=== PATIENT | male | born 1940 | race Caucasian/White ===

== ENCOUNTER → 2016-09-30 | Outpatient (CLI) | payer MEDICARE, BC ==
--- NOTE | 2016-09-30 13:23 | CTL ---
EXAMINATION TYPE: CT Low Dose Lung DATE OF EXAM ORDERED: 09/30/2016 COMPARISON: None HISTORY: . Low Dose CT Lung Screening CT DLP: 54.[address] CTDI: 1.70 mGy IV CONTRAST USED: None. SCREENING VISIT: First visit COMPARISON: None. TECHNIQUE: Low dose computed tomography scan was performed through the chest at 1 millimeter thick se ctions and reconstructed images in the coronal plane at [address] DIAGNOSTIC QUALITY: Satisfactory FINDINGS: LUNG NODULES: Not presentLeft lung: no nodules identified.Right lung: no nodules identified. LUNGS: COPD: Severity: Moderate to severe Fibrosis: Severity:None Lymph nodes: None Other findings: Biapical scarring RIGHT PLEURAL SPACE: Effusion: None Calcification: None Thickening: None Pneumothorax: None LEFT PLEURAL SPACE: Effusion: None Calcification: None Thickening: None Pneumothorax: None HEART: Heart Size: Mildly enlarged Coronary calcification: Mild Pericardial effusion: None OTHER FINDINGS: Upper abdomen: No significant abnormality Bony thorax: Degenerative changes Supraclavicular region: No significant abnormalityOther: No significant abnormalityI IMPRESSION: Benign FOLLOW UP CT CHEST RECOMMENDATION: Follow-up screening in one year CT LUNG RAD: Negative LUNG RAD CATEGORY category 1
== END | disposition home or self-care (01) ==
LOC: RADCTMAIN 12:46
PROVIDERS: ATTEND Family Medicine
DX: Z12.2 Encounter for screening for malignant neoplasm of respiratory organs (principal); Z87.891 Personal history of nicotine dependence

== ENCOUNTER 2017-07-23 23:33 | Inpatient (IN) | payer MEDICARE, BC ==
[2017-07-23 23:58] LABS: Basophils % (A) 0 %; Eosinophils # (A) 0.1 k/uL (0-0.7); Eosinophils % (A) 1 %; HCT 45.2 % (39.0-53.0); HGB 14.5 gm/dL (13.0-17.5); Lymphocytes # (A) 0.9 k/uL (1.0-4.8); Lymphocytes % (A) 8 %; MCH 27.6 pg (25.0-35.0); MCV 86.4 fL (80.0-100.0); Mean Platelet Volume 8.2; Monocytes # (A) 0.4 k/uL (0-1.0); Monocytes % (A) 4 %; Neutrophils # (A) 9.8 k/uL (1.3-7.7); Neutrophils % (A) 87 %; Platelet Count 161 k/uL (150-450); RBC 5.23 m/uL (4.30-5.90); RDW 13.7 % (11.5-15.5); WBC 11.4 k/uL (3.8-10.6)
[2017-07-24] MEDS ORDERED: MORPHINE SULFATE 4MG/4ML SYRG IVP STA (00:05)
[2017-07-24] MEDS ORDERED: NITROGLYCERIN SL TABS 0.4 MG TAB SUBLINGUAL STA (00:06)
[2017-07-24 00:15] LABS: INR 1.1 (<1.2); Prothrombin Time 10.4 sec (9.0-12.0)
[2017-07-24 00:19] LABS: ALT 24 U/L (21-72); AST 37 U/L (17-59); Alkaline Phosphatase 96 U/L (38-126); Anion Gap 12 mmol/L; Blood Urea Nitrogen 49 mg/dL (9-20); Calcium 10.2 mg/dL (8.4-10.2); Carbon Dioxide 28 mmol/L (22-30); Chloride 103 mmol/L (98-107); Glucose 175 mg/dL (74-99); Magnesium 2.2 mg/dL (1.6-2.3); Partial Thromboplastin Time 19.8 sec (22.0-30.0); Potassium 3.9 mmol/L (3.5-5.1); Sodium 143 mmol/L (137-145); Total Bilirubin 0.2 mg/dL (0.2-1.3); Total Protein 6.6 g/dL (6.3-8.2)
--- NOTE | 2017-07-24 00:21 | XR ---
EXAMINATION TYPE: XR chest 1V portable DATE OF EXAM: 07/24/2017 COMPARISON: NONE HISTORY: Dysrhythmia TECHNIQUE: Single frontal view of the chest is obtained. FINDINGS: Heart is normal. Lungs are clear of consolidation. Thoracic aorta is atheromatous. There i s no pleural effusion. There are chest leads. Bony thorax is intact. IMPRESSION: Atheromatous aorta. No active cardiopulmonary disease.
[2017-07-24] MEDS ORDERED: HEPARIN SODIUM,PORCINE 5,000 UNIT/ML 1 ML VIAL IV ONE (00:58)
[2017-07-24] MEDS ORDERED: HEPARIN SODIUM,PORCINE 5,000 UNIT/ML 1 ML VIAL IV PRN (00:58)
[2017-07-24] MEDS ORDERED: HEPARIN SOD,PORK IN 0.45% NACL 25,000 UNIT in 0.45% NACL 1 500ML.BAG IV SCH (01:00)
[2017-07-24] MEDS ORDERED: NITROGLYCERIN SL TABS 0.4 MG TAB SUBLINGUAL PRN ×3 (01:05→16:45)
[2017-07-24] MEDS ORDERED: NITROGLYCERIN-D5W PMX 50 MG in DEXTROSE/WATER 1 250ML.BAG IV ONE (01:18)
[2017-07-24] MEDS ORDERED: MORPHINE SULFATE 4MG/4ML SYRG IV STA (01:20)
[2017-07-24] MEDS: SODIUM CHLORIDE 0.9% 1,000 ML IV SCH ×2 (01:34→17:58)
--- NOTE | 2017-07-24 01:55 | ED ---
Chest Pain HPI - General Chief Complaint: Chest Pain Stated Complaint: Chest Pain Time Seen by Provider: 07/23/17 23:40 Source: patient, EMS Mode of arrival: EMS Limitations: no limitations - History of Present Illness Initial Comments: This patient is a 77-year-old man presenting to be evaluated for substernal chest pain and left chest pain that came on acutely tonight after he was drinking cold drink. Patient also had associated diaphoresis. He does have history of having a stent placed in 2000 in the mid RCA, here at [facility], by Dr. Reddy. ESCOBAR Complaint: chest pain -: hour(s) Onset: during rest Pain Location: left chest Pain Radiation: RUE, LUE Severity: moderate Quality: heaviness Consistency: constant, now resolved Improves With: nothing Worsens With: nothing Anginal Symptoms: diaphoresis Treatments Prior to Arrival: aspirin, nitroglycerin, oxygen - Related Data Home Medications Medication Instructions Recorded Confirmed Aspirin 325 mg PO DAILY 01/27/16 07/24/17 Atorvastatin [Lipitor] 10 mg PO HS 01/27/16 07/24/17 Sertraline [Zoloft] 100 mg PO BID 01/27/16 07/24/17 Cholecalciferol [Vitamin D3] 5,000 unit PO DAILY 07/24/17 07/24/17 Dextroamphetamine/Amphetamine 15 mg PO DAILY PRN 07/24/17 07/24/17 [Adderall] Tamsulosin [Flomax] 0.4 mg PO HS 07/24/17 07/24/17 Allergies Allergy/AdvReac Type Severity Reaction Status Date / Time No Known Allergies Allergy Verified 07/24/17 10:59 Review of Systems ROS Statement: Those systems with pertinent positive or pertinent negative responses have been documented in the HPI. ROS Other: All systems not noted in ROS Statement are negative. Constitutional: Denies: fever, chills Respiratory: Denies: cough, dyspnea Cardiovascular: Reports: chest pain. Denies: palpitations, edema, syncope Gastrointestinal: Denies: abdominal pain, nausea, vomiting Genitourinary: Denies: dysuria, hematuria Musculoskeletal: Denies: back pain Skin: Denies: rash Neurological: Denies: headache, weakness, numbness EKG Findings - EKG Comments: EKG Findings:: Low voltage QRS complexes. - EKG Results: EKG: interpreted by ERMD, sinus rhythm, normal axis EKG shows: tachycardia (Rate approximately 104 bpm) - Blocks, [place], Hypertrophy, ST Abn: Repolarization changes or abnormalities: nonspecific abnormality, ST segment, and/or T wave Past Medical History Past Medical History: Myocardial Infarction ([place]) Additional Past Medical History / Comment(s): Palpable mass/ lump in neck Last Myocardial Infarction Date:: 2000 History of Any Multi-Drug Resistant Organisms: None Reported Past Surgical History: Heart Catheterization With Stent Past Anesthesia/Blood Transfusion Reactions: No Reported Reaction Date of Last Stent Placement:: 03/01/2001 Past Psychological History: Depression Smoking Status: Current some day smoker Past Alcohol Use History: None Reported General Exam Limitations: no limitations General appearance: alert, in no apparent distress Head exam: Present: atraumatic, normocephalic Eye exam: Present: normal appearance. Absent: scleral icterus, conjunctival injection ENT exam: Present: normal oropharynx Neck exam: Present: normal inspection, full ROM Respiratory exam: Present: normal lung sounds bilaterally. Absent: respiratory distress, wheezes, rales, rhonchi, stridor Cardiovascular Exam: Present: regular rate, normal rhythm, normal heart sounds GI/Abdominal exam: Present: soft. Absent: distended, tenderness, guarding, rebound, mass Extremities exam: Present: normal inspection, normal capillary refill. Absent: pedal edema, calf tenderness Back exam: Present: normal inspection. Absent: CVA tenderness (R), CVA tenderness (L) Neurological exam: Present: alert Skin exam: Present: warm, dry, intact, normal color. Absent: rash Course Vital Signs 07/23/17 07/24/17 07/24/17 23:35 00:16 00:21 Temperature 97 F L Pulse Rate 104 H 87 Respiratory 25 H 18 Rate Blood Pressure 120/71 121/74 97/59 O2 Sat by Pulse 96 96 Oximetry 07/24/17 07/24/17 07/24/17 01:41 01:45 01:52 Temperature Pulse Rate 87 88 88 Respiratory 18 18 18 Rate Blood Pressure 116/76 110/73 105/62 O2 Sat by Pulse 95 95 95 Oximetry 07/24/17 07/24/17 07/24/17 01:56 02:15 02:25 Temperature Pulse Rate 88 85 88 Respiratory 18 18 18 Rate Blood Pressure 107/69 95/57 96/53 O2 Sat by Pulse 95 95 98 Oximetry Chest Pain MDM - MDM This patient is 77-year-old man with history of previous [place], who presents with chest pain concerning for cardiac etiology. His previous cardiology history includes having a stent placed here in 2000, by Dr. Rama Rabago, the patient's card indicates placement in the mid RCA. We did receive a call from the lab with critical troponin, and patient is started on heparin. The patient's pain did recur and he was given additional morphine and placed on nitroglycerin drip, and the patient does feel much better following this. I did discuss the patient 's case with Dr. Ramos, who is on-call. They do expect to take the patient for catheterization in the morning, as she is now clinically stable. Review of the patient's monitor strip does reveal he had one episode of ventricular tachycardia with about 12-15 beats that did spontaneously resolve. Disposition Clinical Impression: Non-STEMI (non-ST elevated myocardial infarction) Disposition: ADMITTED IP TO THIS HOSP Condition: Serious Is patient prescribed a controlled substance at d/c from ED?: No
[2017-07-24] MEDS ORDERED: SODIUM CHLORIDE 0.9% 500 ML IV ONE (02:19)
[2017-07-24 02:48] LABS: Glucose,Whole Blood 136 mg/dL (75-99)
[2017-07-24 07:05] LABS: Troponin I 11.8 ng/mL (0.000-0.034)
[2017-07-24] MEDS: INSULIN ASPART 100 UNIT/ML 1 ML 10 ML VIAL SQ SCH ×4 (08:00→22:23)
[2017-07-24 08:01] LABS: Glucose,Whole Blood 133 mg/dL (75-99)
[2017-07-24] MEDS: SERTRALINE 100 MG TAB PO SCH (08:55)
[2017-07-24] MEDS: NON-FORMULARY DRUG (Dextroamphetamine/Amphetamine [Adderall] 10 MG) PO SCH (08:55)
[2017-07-24] MEDS ORDERED: ATORVASTATIN 10 MG TAB PO SCH (09:00)
[2017-07-24] MEDS ORDERED: ATENOLOL 25 MG TAB PO SCH (09:00)
[2017-07-24] MEDS ORDERED: ALPRAZolam 0.5 MG TAB PO PRN (10:17)
[2017-07-24] MEDS ORDERED: SODIUM CHLORIDE 0.9% 1,000 ML in EMPTY BAG 1 BAG IV ONE (10:17)
[2017-07-24] MEDS ORDERED: ASPIRIN 325 MG TAB PO STA (10:27)
[2017-07-24] MEDS ORDERED: ATORVASTATIN 80 MG TAB PO STA (10:27)
--- NOTE | 2017-07-24 10:57 | CONS ---
CONSULTATION Mr. Schwartz is a 77-year-old male with a known history of coronary artery disease, status post percutaneous revascularization of the right coronary artery performed in 2000. He has not seen Dr. Rabago since that time. He had a stent done in the right coronary artery. According to him, he has done well. He was drinking some cold beverage yesterday when he had severe substernal chest discomfort that persisted. He came into the emergency room and was subsequently admitted. According to him, he has done well since his intervention. He denies any exertional chest discomfort in the recent past. He has dyspnea on exertion. No dizziness. No palpitation. No syncope. No PND or orthopnea. No peripheral edema. The patient's discomfort was radiating to the left upper extremity. His coronary risk factors are remarkable for a history of chronic tobacco use, hypertension, hyperlipidemia. He denies any arrhythmia. He denies any syncope. MEDICATION: His medications include: 1. Aspirin once a day. 2. Lipitor 10 mg daily. 3. Atenolol 25 mg daily. 4. Flomax. REVIEW OF SYSTEMS: RESPIRATORY SYSTEM. He has a history of chronic obstructive lung disease and emphysema. GI SYSTEM: No recent GI bleeding. No peptic ulcer disease. SYSTEM: No dysuria or hematuria. NERVOUS SYSTEM: No history of stroke or seizure. PHYSICAL EXAMINATION: This is a 77-year-old male, alert, oriented, in no apparent distress. Blood pressure 114/60 with a heart rate in the 80s. HEAD: Normocephalic. EYES: Sclerae anicteric. NECK: Good carotid upstroke. No bruit. LUNGS: Diffuse scattered rhonchi bilaterally. HEART: Regular rate and rhythm. S1, S2. No S3, with systolic murmur at the base. No diastolic murmur. No rub. ABDOMEN: Soft, non-tender. Positive bowel sounds. No organomegaly. EXTREMITIES: No edema. Intact distal pulses. LAB DATA: Lab data revealed troponin 1.2 and then 11.8. BUN and creatinine of 49 and 0.8. Hemoglobin of 14.5. Chest x-ray revealed no acute infiltrate. EKG reveals sinus mechanism was mild ST-segment changes of the inferior leads, that resolved. IMPRESSION: 1. Episode of chest discomfort with [id number]-elevation myocardial infarction in a patient with known history of coronary artery disease. 2. Chronic tobacco use. 3. Hypertension. 4. Hyperlipidemia. RECOMMENDATION: I would recommend to obtain echocardiogram with Doppler. The dose of his Lipitor will be adjusted. I have recommend proceeding with cardiac catheterization. The rationale behind the procedure as well as risks and complications were discussed with the patient, who is in full understanding and agreement. Depending on his testing, further recommendations will be made. Thank you for this consult. Will follow with you. MMODL / IJN: [id number] /
[2017-07-24] MEDS: METOPROLOL TARTRATE 25 MG TAB PO SCH ×2 (12:03→20:07)
[2017-07-24] MEDS: NICOTINE 21MG/24HR PATCH TRANSDERM SCH (12:34)
[2017-07-24] MEDS: ALPRAZolam 0.25 MG TAB PO PRN ×2 (12:40→17:58)
--- NOTE | 2017-07-24 12:42 | HP ---
HISTORY AND PHYSICAL DATE OF ADMISSION: 07/24/2017 DATE OF SERVICE: 07/24/2017 PRESENTING COMPLAINT: Chest pain. HISTORY OF PRESENTING COMPLAINT: This is a pleasant 77-year-old patient of Dr. Baker. Chronic stable medical conditions include depression, BPH, COPD, nicotine dependence. Patient started off with left-sided anterior chest pain late last night, rather sharp, over the precordial area. It really did not radiate. The patient was not short of breath but did break out in a sweat. He was not dizzy. He tired, nauseated. Patient presented to the ER. Initial troponin was 1.2, then it climbed up to 11.8. Patient was diagnosed to have acute non-Q-wave myocardial infarction and was put in the ICU, started on IV heparin. Patient will be taken for a cardiac catheterization. Patient is an active smoker. Last stent was around 1999. REVIEW OF SYSTEMS: CONSTITUTIONAL: Tired. HEENT: None. RESPIRATORY: Occasional wheezing and coughing. CARDIOVASCULAR: As above. GASTROINTESTINAL: None. GENITOURINARY: Some BPH symptoms. DERMATOLOGICAL: None. HEMATOLOGICAL: None. LYMPHATICS: None. PSYCHIATRY: Depression, controlled. NEUROLOGICAL: None. PAST MEDICAL HISTORY: 1. Coronary artery disease with stent. 2. Depression. 3. BPH. 4. COPD. PAST SURGICAL HISTORY: Cardiac catheterization with stent in 2000. SOCIAL HISTORY: Lives by himself. Has smoked a pack a day for 60 years. Stopping drinking alcohol 2 years ago. FAMILY HISTORY: Reviewed; noncontributory to presentation. HOME MEDICATIONS: 1. Flomax 0.4 mg at bedtime. 2. Zoloft 100 mg b.i.d. 3. Adderall 15 mg p.o. daily p.r.n. 4. Vitamin D3 5000 units p.o. daily. 5. Lipitor 10 mg at bedtime. 6. Aspirin 325 p.o. daily. ALLERGIES: NONE. PHYSICAL EXAMINATION: VITAL SIGNS ON PRESENTATION: Temperature 97, pulse 104, respiration 25, blood pressure 120/71, pulse ox 96% on 2 L. GENERAL APPEARANCE: Average build. Lying in bed, tired-appearing. EYES: Pupils equal. Conjunctivae normal. HEENT: External appearance of nose and ears normal. Oral cavity normal. NECK: JVD not raised. Mass not palpable. RESPIRATORY: Effort increased. LUNGS: Decreased breath sounds. Prolonged expiration. Some wheezing. CARDIOVASCULAR: First and second sounds normal. No edema. ABDOMEN: Soft, nontender. Liver and spleen not palpable. LYMPHATIC: No lymph node palpable in neck or axillae. PSYCHIATRY: Alert and oriented x3. Mood and affect normal. NEUROLOGICAL: Pupils equal. Cranial nerves grossly intact. Power and sensation grossly intact. INVESTIGATIONS: White count 11.4, hemoglobin 14.5, potassium 3.9, BUN 49, creatinine 0.80, troponin 1.2 and 11.8. EKG normal sinus rhythm. Chest x-ray shows hyperinflation, prominent pulmonary artery. ASSESSMENT: 1. Acute [id number] myocardial infarction in a patient with known prior coronary artery disease with stent. 2. Coronary artery disease with prior history of stent in 2000. 3. Depression not otherwise specified. 4. Chronic obstructive pulmonary disease in a current smoker. 5. Benign prostatic hypertrophy. 6. Chronic nicotine dependence. Patient is an active cigarette smoker. 7. IV heparin monitoring. PLAN: The patient is on aspirin, IV heparin, Lipitor dose 80 mg. Home medications will be resumed. He was given a nicotine patch. Cardiology Dr. Mclaughlin was consulted. Patient is going to the cardiac catheterization lab this morning. Care was discussed with the patient. MMODL / IJN: [id number] /
[2017-07-24] MEDS: IPRATROPIUM-ALBUTEROL 3 ML NEB INHALATION SCH ×4 (13:12→21:08)
[2017-07-24] MEDS ORDERED: IV FLUID CONTINUATION 850 ML IV ONE (15:05)
[2017-07-24] MEDS ORDERED: [UNRECOGNIZED DRUG - REMARK] IV ONE (15:05)
[2017-07-24] MEDS ORDERED: LIDOCAINE 2% INJ 20 MG/ML (20 ML MDV) ONE (15:17)
[2017-07-24] MEDS ORDERED: HEPARIN SODIUM 1,000 UN/ML (10ML VL) ONE (15:17)
[2017-07-24] MEDS ORDERED: VERAPAMIL 2.5 MG/ML 2 ML AMP ONE (15:17)
[2017-07-24] MEDS ORDERED: fentaNYL (PF) 50 MCG/ML 2 ML AMP ONE (15:17)
[2017-07-24] MEDS ORDERED: fentaNYL (PF) 50 MCG/ML 2 ML AMP IVP ONE (15:41)
[2017-07-24] MEDS ORDERED: LIDOCAINE 2% INJ 20 MG/ML SQ ONE (15:43)
[2017-07-24] MEDS ORDERED: VERAPAMIL SYRINGE (5 MG/10 ML) INTRAARTER ONE (15:47)
[2017-07-24] MEDS ORDERED: BIVALIRUDIN BOLUS 250 MG/50 ML IV ONE (16:01)
[2017-07-24] MEDS ORDERED: TICAGRELOR 90 MG TAB ONE (16:01)
[2017-07-24] MEDS ORDERED: BIVALIRUDIN 250 MG in SODIUM CHLORIDE 0.9% 50 ML IV ONE (16:02)
[2017-07-24] MEDS ORDERED: TICAGRELOR 90 MG TAB PO ONE (16:06)
[2017-07-24] MEDS ORDERED: IOPAMIDOL-370 125ML BTL INJ ONE (16:18)
[2017-07-24] MEDS ORDERED: IOPAMIDOL-370 100ML BTL INJ ONE (16:28)
[2017-07-24] MEDS ORDERED: MAG HYDROX/AL HYDROX/SIMETH 30 ML CUP PO PRN (16:45)
[2017-07-24] MEDS ORDERED: ZOLPIDEM 5 MG TAB PO PRN (16:45)
[2017-07-24] MEDS ORDERED: RX INFO: IV CONTRAST WAS GIVEN 1 EACH MISC MISCELLANE PRN (16:45)
[2017-07-24] MEDS ORDERED: ATROPINE SULFATE 0.1 MG/ML 10ML SYRINGE IV PRN (16:45)
[2017-07-24] MEDS ORDERED: SODIUM CHLORIDE 0.9% 1,000 ML IV SCH (16:45)
--- NOTE | 2017-07-24 18:11 | ECHOF ---
Referral Reason:mi MEASUREMENTS -------- HEIGHT: 165.1 cm WEIGHT: 64.4 kg BP: 120/60 RVIDd: 2.6 cm (< 3.3) IVSd: 1.1 cm (0.6 - 1.1) LVIDd: 4.1 cm (3.9 - 5.3) LVPWd: 1.1 cm (0.6 - 1.1) IVSs: 1.3 cm LVIDs: 3.0 cm LVPWs: 1.2 cm LA Diam: 3.6 cm (2.7 - 3.8) LAESV Index (A-L): 30.15 ml/m Ao Diam: 3.3 cm (2.0 - 3.7) AV Cusp: 1.6 cm (1.5 - 2.6) LA Diam: 4.3 cm (2.7 - 3.8) MV EXCURSION: 14.924 mm (> 18.000) MV EF SLOPE: 51 mm/s (70 - 150) EPSS: 0.7 cm MV E Wallace: 0.55 m/s MV DecT: 239 ms MV A Wallace: 0.85 m/s MV E/A Ratio: 0.65 AR PHT: 280 ms RAP: 5.00 mmHg RVSP: 43.07 mmHg FINDINGS -------- Sinus rhythm. This was a technically adequate study. There is mild concentric left ventricular hypertrophy. Overall left ventricular systolic function i s mild-moderately impaired with, an EF between 40 - 45 %. Basal inferior LV wall motion is hypokine tic. Mid lateral LV wall motion is hypokinetic. Mid inferior LV wall motion is hypokinetic. The right ventricle is normal in size. LA is midly dilated 29-33ml/m2. The right atrial size is normal. There is mild aortic valve sclerosis. There is mild aortic regurgitation. The mitral valve leaflets are mildly thickened. Mild mitral regurgitation is present. Mild tricuspid regurgitation present. There is mild pulmonary hypertension. The right ventricular systolic pressure, as measured by Doppler, is 43.07mmHg. There is no pulmonic regurgitation present. The aortic root size is normal. There is no pericardial effusion. CONCLUSIONS -------- 1. Sinus rhythm. 2. There is mild concentric left ventricular hypertrophy. 3. Overall left ventricular systolic function is mild-moderately impaired with, an EF between 40 - 45 %. 4. Basal inferior LV wall motion is hypokinetic. 5. Mid lateral LV wall motion is hypokinetic. 6. Mid inferior LV wall motion is hypokinetic. 7. LA is midly dilated 29-33ml/m2. 8. There is mild aortic valve sclerosis. 9. There is mild aortic regurgitation. 10. The mitral valve leaflets are mildly thickened. 11. Mild mitral regurgitation is present. 12. Mild tricuspid regurgitation present. 13. There is mild pulmonary hypertension. 14. There is no pulmonic regurgitation present. 15. The aortic root size is normal. 16. There is no pericardial effusion. VIDEO SYSTEMS ENGINEER: Joseline Roger RDCS
[2017-07-24 18:13] LABS: Glucose,Whole Blood 137 mg/dL (75-99)
--- NOTE | 2017-07-24 19:09 | CC ---
CARDIAC CATHETERIZATION REPORT DATE OF SERVICE: 07/24/2017. PROCEDURE: Cardiac catheterization. INDICATIONS: Mr. Schwartz is a 77-year-old male, known history of coronary artery disease, status post stenting of the right coronary artery in 2000, history of hypertension, chronic tobacco use, who presented with symptoms of chest discomfort and evidence of non-ST segment elevation myocardial infarction. In view of that, recommendation made regarding cardiac catheterization. The procedure, as well as the risks and complication were discussed with the patient who is in full understanding and agreement. DESCRIPTION OF PROCEDURE: Patient was brought to laboratory animal facility supervisor in a fasting semi-sedated state after receiving fentanyl and Benadryl and achieving moderate conscious sedated state. Using Xylocaine anesthesia and Seldinger technique, a 6-Congolese sheath was introduced in the right radial artery. Selective right and left coronary angiography performed using 5-Congolese 3-1/2 bend right and left Delfina catheter. Multiple views of the coronary arteries including hemiaxial views were obtained. Following that, angioplasty and stenting was performed from that 5-Congolese tight pigtail catheter in his left ventricle and a 30 degree VICK view of the left ventricle was obtained. Following that, the catheter and sheath were removed. Hemostasis was obtained with deployment of a TR band. There were no immediate complications. Patient is returned to his room in stable condition. FINDINGS: LEFT MAIN: This is a large-sized vessel, aneurysmal, bifurcating in left circumflex and left anterior descending artery. Left main coronary artery has no evidence of significant obstructive disease. LEFT MAIN DESCENDING ARTERY: This is a large-sized vessel reaching toward the apex, giving rise to three obtuse marginal branches. The left anterior descending artery is calcified but has no evidence of high-grade stenosis. The first diagonal branch is totally occluded proximally with no antegrade flow. LEFT CIRCUMFLEX: This is a small nondominant vessel giving rise to one obtuse marginal branch that has no evidence of high-grade stenosis. RIGHT CORONARY ARTERY: This is a large dominant vessel, bifurcating distally to PDA, and posterolateral segment branches. The stented segment in the mid right coronary artery has a 20% to 30% in-stent restenosis. The rest of the vessel has no high-grade stenosis. LEFT VENTRICULOGRAM: Left ventriculogram was performed in 30 degree VICK view and revealed anteroapical lateral hypokinesis. Ejection fraction 45%. There was no significant mitral regurgitation. HEMODYNAMICS: There was no gradient across the aortic valve. The left ventricle end-diastolic pressure was 16 to 20 mmHg. CONCLUSION: 1. Acutely occluded first diagonal branch. 2. Mild in-stent restenosis of the right coronary artery. 3. Mild impaired left ventricular systolic function. RECOMMENDATIONS: In view of findings of anatomy, I have recommended to proceed with angioplasty and stenting of the diagonal branch. The procedure, risks and complications were discussed with the patient who are in full understanding and agreement. MMODL / IJN: [id number] /
--- NOTE | 2017-07-24 19:09 | PTCA ---
PERCUTANEOUSTRANS CORORONARY ANGIOGRAPHY Mr. Schwartz is a 77-year-old male with known history of heart disease, who presented with evidence of non ST-segment elevation myocardial infarction. He underwent cardiac catheterization and was found to have totally occluded first diagonal branch. In view of that, recommendation was made regarding angioplasty and stenting the procedures risks and complication were discussed with the patient who is in full understanding and agreement. PROCEDURE: A 6-Chinese FL 3.5 guiding catheter in the system. After cannulating the left main, a 0.014 balanced medium J wire was advanced across the lesion with a 2.25 x 8 mm Trek balloon was advanced. Two inflations at maximum of 10 atmosphere was done. Following that, the wire was exchanged through the balloon to whisper J-wire, positioned in the distal diagonal branch. Following that and after removing the balloon, a 2.25 x 12 mm Xience Alpine stent was deployed and post dilated at 14 atmospheres. After the last inflation, after appropriate wait the balloon and the guidewire were withdrawn back in the guiding catheter. Images were obtained and repeated. Those images reveal stable successful stenting. At that point, the guiding catheter, the balloon and guidewire were removed. Left ventriculogram was performed. Following that, catheter and sheath were removed. Hemostasis was obtained with deployment of a TR band. There was no immediate complication. The patient was returned to his room in stable condition. Of note, the patient received Angiomax per protocol as well as oral loading dose of Brilinta. He had no significant chest pain or EKG changes with the inflations. RESULTS: A successful stenting of the first diagonal branch with reduction of stenosis 100% to 0%. RECOMMENDATION: The patient will be continued on aspirin, Brilinta, beta blockers and statin. The importance of dual antiplatelet treatment were discussed with the patient and he was in full understanding and agreement. DURATION OF PROCEDURE: 48 minutes. MMODL / IJN: [id number] /
[2017-07-24] MEDS: TAMSULOSIN 0.4 MG CAP.ER.24H PO SCH (20:07)
[2017-07-24] MEDS: TICAGRELOR 90 MG TAB PO SCH (20:07)
[2017-07-24 22:04] LABS: Glucose,Whole Blood 97 mg/dL (75-99)
[2017-07-25 04:49] LABS: Anion Gap 9 mmol/L; Blood Urea Nitrogen 38 mg/dL (9-20); Carbon Dioxide 26 mmol/L (22-30); Chloride 110 mmol/L (98-107); Cholesterol 99 mg/dL (<200); Glucose 114 mg/dL (74-99); HDL Cholesterol 44 mg/dL (40-60); LDL Cholesterol,Calculated 39 mg/dL (0-99); Potassium 3.9 mmol/L (3.5-5.1); Sodium 145 mmol/L (137-145); Triglycerides 79 mg/dL (<150)
[2017-07-25 04:56] LABS: Basophils % (A) 0 %; Eosinophils # (A) 0.1 k/uL (0-0.7); Eosinophils % (A) 1 %; HCT 39.5 % (39.0-53.0); HGB 13.1 gm/dL (13.0-17.5); Lymphocytes # (A) 0.7 k/uL (1.0-4.8); Lymphocytes % (A) 8 %; MCH 29.4 pg (25.0-35.0); MCHC 33.2 g/dL (31.0-37.0); MCV 88.4 fL (80.0-100.0); Monocytes # (A) 0.6 k/uL (0-1.0); Monocytes % (A) 7 %; Neutrophils # (A) 7.3 k/uL (1.3-7.7); Neutrophils % (A) 83 %; Platelet Count 106 k/uL (150-450); RBC 4.46 m/uL (4.30-5.90); RDW 13.6 % (11.5-15.5); WBC 8.8 k/uL (3.8-10.6)
[2017-07-25 07:18] LABS: Glucose,Whole Blood 104 mg/dL (75-99)
[2017-07-25] MEDS: IPRATROPIUM-ALBUTEROL 3 ML NEB INHALATION SCH ×4 (07:31→19:27)
[2017-07-25] MEDS: INSULIN ASPART 100 UNIT/ML 1 ML 10 ML VIAL SQ SCH ×4 (07:34→21:56)
[2017-07-25] MEDS: NON-FORMULARY DRUG (Dextroamphetamine/Amphetamine [Adderall] 10 MG) PO SCH (08:10)
[2017-07-25] MEDS: ATORVASTATIN 80 MG TAB PO SCH (08:11)
[2017-07-25] MEDS: ASPIRIN 81 MG PO SCH (08:11)
[2017-07-25] MEDS: TICAGRELOR 90 MG TAB PO SCH ×2 (08:12→20:34)
[2017-07-25] MEDS: SERTRALINE 100 MG TAB PO SCH (08:12)
[2017-07-25] MEDS: METOPROLOL TARTRATE 25 MG TAB PO SCH ×2 (08:12→20:34)
[2017-07-25] MEDS ORDERED: ASPIRIN 325 MG TAB PO SCH (09:00)
--- NOTE | 2017-07-25 10:10 | PN ---
PROGRESS NOTE HISTORY: Mr. Schwartz is a 77-year-old male who presented with an acute non ST-segment elevation myocardial infarction, underwent cardiac catheterization yesterday, was found to have totally occluded diagonal branch and underwent successful stenting. He is doing well this morning. His breathing has been stable. He denies any dizziness or palpitation. He denies any nausea. He is quite anxious to go home. He continues to be at this time on aspirin once a day, Lipitor 80 mg daily, Brilinta 90 mg twice a day, metoprolol tartrate 25 mg daily. PHYSICAL EXAMINATION: Blood pressure 120/80 with a heart in the 80s. LUNGS: Clear. Heart regular rate and rhythm. S1, S2. No S3. No rub. ABDOMEN: Soft, nontender. EXTREMITIES: No edema. Right radial pulse is intact. LAB DATA: Lab data revealed BUN and creatinine 38 and 0.8, potassium 3.9, hemoglobin of 13.1. EKG revealed no acute changes. IMPRESSION: 1. Status post stenting of the diagonal branch with non ST-segment elevation myocardial infarction. 2. Hypertension. 3. Chronic tobacco use. RECOMMENDATION: We will increase his level of activity. If he remains stable, I would expect he will be probably discharged home tomorrow. MMODL / IJN: [id number] /
[2017-07-25] MEDS: ALPRAZolam 0.25 MG TAB PO PRN ×2 (11:26→20:30)
[2017-07-25] MEDS: NICOTINE 21MG/24HR PATCH TRANSDERM SCH (11:43)
[2017-07-25 12:22] LABS: Glucose,Whole Blood 69 mg/dL (75-99)
[2017-07-25 12:41] LABS: Glucose,Whole Blood 50 mg/dL (75-99)
[2017-07-25 12:41] LABS: Glucose,Whole Blood 87 mg/dL (75-99)
[2017-07-25 17:13] LABS: Glucose,Whole Blood 89 mg/dL (75-99)
[2017-07-25] MEDS: TAMSULOSIN 0.4 MG CAP.ER.24H PO SCH (20:34)
--- NOTE | 2017-07-25 20:58 | PN ---
PROGRESS NOTE DATE OF SERVICE: 07/25/17 PRESENTING COMPLAINT: Chest pain. INTERVAL HISTORY: This patient presented with acute non-Q-wave myocardial infarction with successful angioplasty stenting to the diagonal branch. The patient this morning was seen by me in the ICU. Daughter is at the bedside. Otherwise, being comfortable, slightly short of breath. Wants to go home. Did explain to him that it is important that he stays back until matters are settled down. REVIEW OF SYSTEMS: Done for constitutional, cardiovascular, GI, pulmonary, relevant findings as above. CURRENT MEDICATIONS: Reviewed that include aspirin, Lipitor, Brilinta. PHYSICAL EXAMINATION: Afebrile, pulse 66, respiratory 18, blood pressure 105/67, pulse ox 100% on 4 L. GENERAL APPEARANCE: Lying in bed, tired appearing. Eyes pupils are equal. Conjunctivae normal. HEENT: External appearance of nose and ears normal. Oral cavity normal. Neck JVD not raised. Mass not palpable. Respiratory effort increased. Lungs decreased breath sounds. Prolonged expiration. Mild wheezing. Cardiovascular 1st and 2nd sounds normal. No edema. Abdomen soft, nontender. Liver and spleen not palpable. Psychiatry: Alert and oriented x3. Mood and affect normal. INVESTIGATIONS: White count 8.8, hemoglobin 13.1, potassium 3.9. Accu-Cheks noted. 2D echocardiogram EF 40-45%. ASSESSMENT: 1. Acute non ST elevation myocardial infarction in a patient with known coronary artery disease with stent. 2. Acute coronary intervention with stent to the LAD. 3. Coronary artery disease, prior stent in 2000. 4. Ischemic cardiomyopathy ejection fraction 40-45%. 5. Depression, not otherwise specified. 6. Chronic obstructive pulmonary disease in a current smoker. 7. Benign prostatic hypertrophy. 8. Chronic nicotine dependence, patient is an active cigarette smoker. PLAN: Explained to the patient the importance of staying back in the hospital as with is a very high , especially in the 1st 72 hours and that could cause problems including . Will keep a close eye on patient's blood pressure. Encouraged to be out of bed. Follow with Cardiology. MMODL / IJN: [id number] /
[2017-07-25 21:18] LABS: Glucose,Whole Blood 131 mg/dL (75-99)
[2017-07-25 21:22] LABS: Anion Gap 12 mmol/L; Calcium 9.1 mg/dL (8.4-10.2); Carbon Dioxide 24 mmol/L (22-30); Chloride 110 mmol/L (98-107); Glucose 163 mg/dL (74-99); Sodium 146 mmol/L (137-145)
[2017-07-25 21:24] LABS: Blood Urea Nitrogen 42 mg/dL (9-20); Potassium 4.1 mmol/L (3.5-5.1)
[2017-07-25] MEDS ORDERED: METOPROLOL TARTRATE 25 MG TAB PO STA (23:42)
[2017-07-26] MEDS: SODIUM CHLORIDE 0.9% 1,000 ML IV SCH (04:21)
[2017-07-26 05:56] LABS: Basophils % (A) 0 %; Eosinophils # (A) 0.1 k/uL (0-0.7); Eosinophils % (A) 1 %; HCT 36.5 % (39.0-53.0); HGB 11.9 gm/dL (13.0-17.5); Lymphocytes # (A) 0.7 k/uL (1.0-4.8); Lymphocytes % (A) 10 %; MCH 28.6 pg (25.0-35.0); MCHC 32.6 g/dL (31.0-37.0); MCV 87.9 fL (80.0-100.0); Mean Platelet Volume 8.5; Monocytes # (A) 0.5 k/uL (0-1.0); Monocytes % (A) 7 %; Neutrophils # (A) 5.8 k/uL (1.3-7.7); Neutrophils % (A) 81 %; RBC 4.16 m/uL (4.30-5.90); RDW 13.7 % (11.5-15.5); WBC 7.1 k/uL (3.8-10.6)
[2017-07-26 05:58] LABS: Glucose,Whole Blood 111 mg/dL (75-99)
[2017-07-26 06:00] LABS: Anion Gap 9 mmol/L; Blood Urea Nitrogen 41 mg/dL (9-20); Calcium 8.6 mg/dL (8.4-10.2); Carbon Dioxide 24 mmol/L (22-30); Chloride 111 mmol/L (98-107); Glucose 103 mg/dL (74-99); Potassium 3.8 mmol/L (3.5-5.1); Sodium 144 mmol/L (137-145)
[2017-07-26] MEDS: INSULIN ASPART 100 UNIT/ML 1 ML 10 ML VIAL SQ SCH ×4 (06:03→20:55)
[2017-07-26 06:15] LABS: Platelet Count 93 k/uL (150-450)
[2017-07-26] MEDS: ASPIRIN 81 MG PO SCH (08:06)
[2017-07-26] MEDS: METOPROLOL TARTRATE 25 MG TAB PO SCH ×3 (08:06→21:23)
[2017-07-26] MEDS: ATORVASTATIN 80 MG TAB PO SCH (08:06)
[2017-07-26] MEDS: NICOTINE 21MG/24HR PATCH TRANSDERM SCH (08:06)
[2017-07-26] MEDS: TICAGRELOR 90 MG TAB PO SCH ×2 (08:07→19:43)
[2017-07-26] MEDS: SERTRALINE 100 MG TAB PO SCH (08:07)
[2017-07-26] MEDS: IPRATROPIUM-ALBUTEROL 3 ML NEB INHALATION SCH ×5 (08:34→20:36)
[2017-07-26] MEDS: NON-FORMULARY DRUG (Dextroamphetamine/Amphetamine [Adderall] 10 MG) PO SCH (10:07)
[2017-07-26] MEDS: AMIODARONE 200 MG TAB PO SCH ×2 (10:34→19:42)
[2017-07-26 11:12] VITALS: BMI 22.9
[2017-07-26 11:54] LABS: Glucose,Whole Blood 88 mg/dL (75-99)
--- NOTE | 2017-07-26 14:41 | P.PN ---
Subjective Progress Note Date: 07/26/17 Principal diagnosis: Non-STEMI This is a 77-year-old gentleman who presented to the hospital with a non-ST elevation myocardial infarction, he underwent cardiac catheterization and was found to have a totally occluded diagonal branch for which he underwent successful stenting. This morning around 3 AM it was noted that the patient went into atrial fibrillation with a rapid ventricular response, he has since converted to normal sinus rhythm and again went back into atrial fibrillation. Patient was given an additional dose of beta angie, and his regular dose increased. He was also on amiodarone 400 mg one tablet by mouth twice a day and encourage by Dr. Mclaughlin to stay the night to the patient through the night. Blood pressure 92/58. Objective - Vital Signs Vital signs: Vital Signs Temp 96.2 F L 07/26/17 11:26 Pulse 100 07/26/17 12:09 Resp 18 07/26/17 11:26 BP 92/58 07/26/17 11:26 Pulse Ox 97 07/26/17 11:26 Intake & Output 07/25/17 07/26/17 07/26/17 18:59 06:59 18:59 Intake Total 75 0 360 Output Total 825 250 Balance -750 0 110 Weight 64.5 kg 64.5 kg Intake: Intake, IV Titration 0 0 Amount Sodium Chloride 0.9% 1, 0 0 000 ml @ 20 mls/hr IV . Q24H [facility] Rx#:[id number] Oral 75 360 Output: Urine 825 250 Other: Voiding Method Urinal Urinal # Voids 2 1 1 - Exam PHYSICAL EXAMINATION: HEENT: Head is atraumatic, normocephalic. Pupils equal, round. Neck is supple. There is no elevated jugular venous pressure. HEART EXAMINATION: Heart S1, S2 normal. No murmur or gallop heard. CHEST EXAMINATION: Lungs with fine expiratory wheezing noted .No chest wall tenderness is noted on palpation or with deep breathing. ABDOMEN: Soft, nontender. Bowel sounds are heard. No organomegaly noted. EXTREMITIES: 2+ peripheral pulses with no evidence of peripheral edema and no calf tenderness noted. NEUROLOGIC patient is awake, alert and oriented -3. . - Labs CBC & Chem 7: 07/26/17 05:10 07/26/17 05:10 Labs: Abnormal Lab Results - Last 24 Hours (Table) 07/25/17 07/25/1707/26/18 Range/Units 20:49 21:16 05:10 RBC 4.16 L (4.30-5.90) m/uL Hgb 11.9 L (13.0-17.5) gm/dL Hct 36.5 L (39.0-53.0) % Plt Count 93 L (150-450) k/uL Lymphocytes # 0.7 L (1.0-4.8) k/uL Sodium 146 H (137-145) mmol/L Chloride 110 H (98-107) mmol/L BUN 42 H (9-20) mg/dL Glucose 163 H (74-99) mg/dL POC Glucose (mg/dL) 131 H (75-99) mg/dL 07/26/17 07/26/17 Range/Units 05:10 05:56 RBC (4.30-5.90) m/uL Hgb (13.0-17.5) gm/dL Hct (39.0-53.0) % Plt Count (150-450) k/uL Lymphocytes # (1.0-4.8) k/uL Sodium (137-145) mmol/L Chloride 111 H (98-107) mmol/L BUN 41 H (9-20) mg/dL Glucose 103 H (74-99) mg/dL POC Glucose (mg/dL) 111 H (75-99) mg/dL Assessment and Plan Plan: Assessment and plan #1 acute non-ST elevation myocardial infarction, status post stenting of the diagonal branch #2 hypertension #3 nicotine dependence #4 paroxysmal atrial fibrillation, currently in normal sinus rhythm Plan We will increase the dose of beta angie, start the patient on amiodarone 400 mg one tablet by mouth twice a day. Continue to monitor for the next 24 hours and plan for possible discharge home in the morning if stable. DNP note has been reviewed, I agree with a documented findings and plan of care. Patient was seen and examined.
[2017-07-26 16:53] LABS: Glucose,Whole Blood 96 mg/dL (75-99)
[2017-07-26] MEDS: BUDESONIDE 1 MG/2 ML NEBU INHALATION SCH ×2 (17:12→20:35)
[2017-07-26] MEDS: TAMSULOSIN 0.4 MG CAP.ER.24H PO SCH (19:42)
[2017-07-26 19:47] VITALS: RESP 18
[2017-07-26] MEDS ORDERED: MELATONIN 3 MG TABLET PO ONE (20:39)
[2017-07-26 20:43] LABS: Glucose,Whole Blood 132 mg/dL (75-99)
[2017-07-26] MEDS: ALPRAZolam 0.25 MG TAB PO PRN (21:26)
--- NOTE | 2017-07-26 21:56 | PN ---
PROGRESS NOTE DATE OF SERVICE: 07/26/2017 PRESENTING COMPLAINT: Chest pain. INTERVAL HISTORY: This is a patient with acute non-Q-wave ND and successful angioplasty and stenting. Feels a bit tired. Up and about. No chest pain. REVIEW OF SYSTEMS: Done for constitutional, cardiovascular, GI, pulmonary; relevant findings as above. CURRENT MEDICATIONS: Reviewed. PHYSICAL EXAMINATION: Temperature 96.2, pulse 79, respiration 18, blood pressure 92/58, pulse ox 97% on 3 L. GENERAL APPEARANCE: Sitting up. Comfortable. EYES: Pupils equal. Conjunctivae normal. HEENT: External appearance of nose and ears normal. Oral cavity normal. NECK: JVD not raised. Mass not palpable. RESPIRATORY: Effort increased. LUNGS: Decreased breath sounds. Prolonged expiration. CARDIOVASCULAR: First and second sounds normal. No edema. ABDOMEN: Soft, nontender. Liver and spleen not palpable. PSYCHIATRY: Alert and oriented x3. Mood and affect normal. INVESTIGATIONS: White count 7.1, hemoglobin 11.9, potassium 3.8. ASSESSMENT: 1. Acute ST-elevation myocardial infarction in a patient with known coronary artery disease with stent. 2. Acute coronary intervention with stent to the left anterior descending coronary artery. 3. Coronary artery disease with prior stent in 2010. 4. Ischemic cardiomyopathy; ejection fraction 40% to 45%. 5. Depression not otherwise specified. 6. Chronic obstructive pulmonary disease in a current smoker. 7. Benign prostatic hypertrophy. 8. Chronic nicotine dependence; patient an active cigarette smoker. PLAN: Continue current medication and treatment plan. Patient encouraged to ambulate. Follow with Cardiology. MMODL / IJN: [id number] /
[2017-07-27] MEDS: SODIUM CHLORIDE 0.9% 1,000 ML IV SCH (02:41)
[2017-07-27 06:46] LABS: Basophils % (A) 0 %; Eosinophils # (A) 0.2 k/uL (0-0.7); Eosinophils % (A) 4 %; HCT 35.6 % (39.0-53.0); HGB 11.3 gm/dL (13.0-17.5); Lymphocytes # (A) 0.8 k/uL (1.0-4.8); Lymphocytes % (A) 13 %; MCH 28.1 pg (25.0-35.0); MCHC 31.7 g/dL (31.0-37.0); MCV 88.5 fL (80.0-100.0); Mean Platelet Volume 8.7; Monocytes # (A) 0.4 k/uL (0-1.0); Monocytes % (A) 6 %; Neutrophils # (A) 4.7 k/uL (1.3-7.7); Neutrophils % (A) 75 %; Platelet Count 102 k/uL (150-450); RBC 4.03 m/uL (4.30-5.90); RDW 13.7 % (11.5-15.5); WBC 6.2 k/uL (3.8-10.6)
[2017-07-27] MEDS: INSULIN ASPART 100 UNIT/ML 1 ML 10 ML VIAL SQ SCH ×2 (06:54→12:00)
[2017-07-27 06:59] LABS: Glucose,Whole Blood 114 mg/dL (75-99)
[2017-07-27] MEDS: AMIODARONE 200 MG TAB PO SCH (08:16)
[2017-07-27] MEDS: METOPROLOL TARTRATE 25 MG TAB PO SCH (08:16)
[2017-07-27] MEDS: ATORVASTATIN 80 MG TAB PO SCH (08:16)
[2017-07-27] MEDS: NICOTINE 21MG/24HR PATCH TRANSDERM SCH (08:17)
[2017-07-27] MEDS: TICAGRELOR 90 MG TAB PO SCH (08:17)
[2017-07-27] MEDS: SERTRALINE 100 MG TAB PO SCH (08:17)
[2017-07-27] MEDS: ASPIRIN 81 MG PO SCH (08:17)
[2017-07-27] MEDS: NON-FORMULARY DRUG (Dextroamphetamine/Amphetamine [Adderall] 10 MG) PO SCH (08:22)
[2017-07-27] MEDS: BUDESONIDE 1 MG/2 ML NEBU INHALATION SCH (08:34)
[2017-07-27] MEDS: IPRATROPIUM-ALBUTEROL 3 ML NEB INHALATION SCH ×2 (08:34→11:36)
[2017-07-27 11:44] VITALS: BP 96/61; TEMP 96.9
[2017-07-27 11:49] VITALS: PULSE 88
[2017-07-27 11:58] LABS: Glucose,Whole Blood 118 mg/dL (75-99)
--- NOTE | 2017-07-27 14:50 | P.PN ---
Subjective Progress Note Date: 07/27/17 Principal diagnosis: Non-STEMI This is a 77-year-old gentleman who presented to the hospital with a non-ST elevation myocardial infarction, he underwent cardiac catheterization and was found to have a totally occluded diagonal branch for which he underwent successful stenting. This morning around 3 AM it was noted that the patient went into atrial fibrillation with a rapid ventricular response, he has since converted to normal sinus rhythm and again went back into atrial fibrillation. Patient was given an additional dose of beta angie, and his regular dose increased. He was also on amiodarone 400 mg one tablet by mouth twice a day and encourage by Dr. Mclaughlin to stay the night to the patient through the night. Blood pressure 92/58. 07/27/2017 Patient was seen and examined this morning, denies any further chest discomfort , remaining in normal sinus rhythm today. Breathing is overall stable. He is quite anxious about going home, home care has been set up for him on discharge. The pressure 96/60 with a heart rate in the 60s, 91% on room air. Objective - Vital Signs Vital signs: Vital Signs Temp 96.9 F L 07/27/17 11:43 Pulse 88 07/27/17 11:48 Resp 18 07/27/17 11:43 BP 96/61 07/27/17 11:43 Pulse Ox 91 L 07/27/17 11:43 Intake & Output 07/26/17 07/27/17 07/27/17 18:59 06:59 18:59 Intake Total 480 340 Output Total 250 Balance 230 340 Weight 64.5 kg 64.5 kg 64.5 kg Intake: Intake, IV Titration 0 Amount Sodium Chloride 0.9% 1, 0 000 ml @ 20 mls/hr IV . Q24H [facility] Rx#:[id number] Oral 480 340 Output: Urine 250 Other: # Voids 1 2 1 - Exam PHYSICAL EXAMINATION: HEENT: Head is atraumatic, normocephalic. Pupils equal, round. Neck is supple. There is no elevated jugular venous pressure. HEART EXAMINATION: Heart S1, S2 normal. No murmur or gallop heard. CHEST EXAMINATION: Lungs are clear to auscultation ABDOMEN: Soft, nontender. Bowel sounds are heard. No organomegaly noted. EXTREMITIES: 2+ peripheral pulses with no evidence of peripheral edema and no calf tenderness noted. NEUROLOGIC patient is awake, alert and oriented -3. . - Labs CBC & Chem 7: 07/27/17 05:59 07/26/17 05:10 Labs: Abnormal Lab Results - Last 24 Hours (Table) 07/26/17 07/27/17 07/27/17 Range/Units 20:41 05:59 06:53 RBC 4.03 L (4.30-5.90) m/uL Hgb 11.3 L (13.0-17.5) gm/dL Hct 35.6 L (39.0-53.0) % Plt Count 102 L (150-450) k/uL Lymphocytes # 0.8 L (1.0-4.8) k/uL POC Glucose (mg/dL) 132 H 114 H (75-99) mg/dL 07/27/17 Range/Units 11:57 RBC (4.30-5.90) m/uL Hgb (13.0-17.5) gm/dL Hct (39.0-53.0) % Plt Count (150-450) k/uL Lymphocytes # (1.0-4.8) k/uL POC Glucose (mg/dL) 118 H (75-99) mg/dL Assessment and Plan Plan: Assessment and plan #1 acute non-ST elevation myocardial infarction, status post stenting of the diagonal branch #2 hypertension #3 nicotine dependence #4 paroxysmal atrial fibrillation, currently in normal sinus rhythm Plan Patient may be able to be discharged home today from cardiology's perspective, we'll make a follow-up appointment with Dr. simons on with the office in one week post discharge. Patient will be discharged home on amiodarone 400 mg one tablet by mouth twice a day for one week, then 200 mg by mouth twice a day. Aspirin 81 mg daily, Lipitor 80 mg daily, metoprolol 25 mg one tablet by mouth 3 times a day, nicotine patch, Brilinta 90 mg by mouth twice a day, and sublingual nitroglycerin as needed for chest pain. Patient has again been instructed regarding the importance of complete nicotine cessation and the compliance of taking medications regularly. DNP note has been reviewed, I agree with a documented findings and plan of care. Patient was seen and examined.
--- NOTE | 2017-07-28 08:20 | DS ---
DISCHARGE SUMMARY DATE OF ADMISSION: 07/24/2017 DATE OF DISCHARGE: July 27, 2017. FINAL DIAGNOSES: 1. Acute non ST-elevation myocardial infarction. The patient has known coronary artery disease with stent. 2. Acute coronary intervention with stent to the LAD. 3. Coronary artery disease with prior history of stent in 2010. 4. Ischemic cardiomyopathy ejection fraction 40-45%. 5. Depression, not otherwise specified. 6. Chronic obstructive pulmonary disease in a current smoker. 7. Benign prostatic hypertrophy. 8. Chronic nicotine dependence, patient is an active cigarette smoker. CONSULTATION: Dr. Mclaughlin from Cardiology. HOSPITAL COURSE: This patient presented with an acute MT which is non ST elevation type. The patient was taken to the cardiac catheterization lab and intervention as above was carried out. The patient has significant COPD, but does not really want to follow up with any Pulmonary. I did get breathing treatments and inhalers and told him that if he changes mind he should follow up with a fur tailor, which he was not keen to see. He has seen one before. No further chest pain. Up and about. The patient 2D echocardiogram showed EF as above. Today care was discussed at length with the patient and son at the bedside and smoking cessation counseling was again done at length. DISCHARGE MEDICATIONS: 1. Zoloft 100 mg p.o. b.i.d. 2. Vitamin D3 5000 units p.o. daily. 3. Adderall 550 mg p.o. daily p.r.n. 4. Flomax 0.4 mg q.h.s. 5. Cordarone 400 mg p.o. b.i.d. 6. Aspirin 81 mg p.o. daily. 7. Lipitor 80 mg p.o. daily. 8. Symbicort 160/4.5, 2 puffs b.i.d. 9. DuoNeb q.i.d. 10.Lopressor 25 p.o. b.i.d. 11.Nicotine 21 gm patch. 12.Nitrostat 0.4 sublingual q.5h p.r.n. 13.Brilinta 90 mg b.i.d. 14.Prednisone taper. FOLLOW UP: Follow up with Dr. Mclaughlin on August 02, 2017. Follow up with Dr. Jamie Baker on July 30, 2017. New nebulizer prescribed. Discussion and discharge planning more than [address] Baker. MMODL / CHAITANYAN: [id number] /
== END 2017-07-27 16:32 | disposition home health service (06) | DRG 247 ==
LOC: EC 23:33 → 6ICU 07-24 01:06 → 6SEL 07-25 17:39
PROVIDERS: ADMIT Hospitalist; ATTEND Hospitalist
PROC: B211YZZ Fluoroscopy of Multiple Coronary Arteries using Other Contrast (ICD-10-PCS; 2017-07-24)
PROC: B215YZZ Fluoroscopy of Left Heart using Other Contrast (ICD-10-PCS; 2017-07-24)
PROC: B215YZZ Fluoroscopy of Left Heart using Other Contrast (ICD-10-PCS; principal; 2017-07-24 15:00)
PROC: 027034Z Dilation of Coronary Artery, One Artery with Drug-eluting Intraluminal Device, Percutaneous Approach (ICD-10-PCS; 2017-07-24 15:00)
DX: I21.4 Non-ST elevation (NSTEMI) myocardial infarction (principal); I47.2 Ventricular tachycardia; T82.855A Stenosis of coronary artery stent, initial encounter; J44.9 Chronic obstructive pulmonary disease, unspecified; I48.0 Paroxysmal atrial fibrillation; I25.10 Atherosclerotic heart disease of native coronary artery without angina pectoris; N40.0 Benign prostatic hyperplasia without lower urinary tract symptoms; E78.5 Hyperlipidemia, unspecified; I25.5 Ischemic cardiomyopathy; I10 Essential (primary) hypertension; I25.2 Old myocardial infarction; F17.210 Nicotine dependence, cigarettes, uncomplicated; Z71.6 Tobacco abuse counseling; F32.9 Major depressive disorder, single episode, unspecified; Z79.82 Long term (current) use of aspirin; Z79.899 Other long term (current) drug therapy; Y84.0 Cardiac catheterization as the cause of abnormal reaction of the patient, or of later complication, without mention of misadventure at the time of the procedure
CPT/HCPCS: 36415; 71045; 80048; 80053; 80061; 82550; 82553; 83735; 84484; 85025; 85610; 85730; 93005; 93306; 93458; 94640; 94760; 96365; 96368; 96375; 96376; 99285

== ENCOUNTER 2017-08-17 11:29 | Inpatient (IN) | payer MEDICARE, BC ==
--- NOTE | 2017-08-17 11:47 | ED ---
General Adult HPI - General Chief complaint: Shortness of Breath Stated complaint: SOB Time Seen by Provider: 08/17/17 11:32 Source: patient, EMS, RN notes reviewed, old records reviewed Mode of arrival: EMS Limitations: no limitations - History of Present Illness Initial comments: This is a 69-year-old male to the ER for evaluation. She was essay for evaluation regards to shortness of breath, patient has severe history of CVA, heart disease possible underlying COPD. Patient has no recent travel history no sick contacts but does have significant shortness of breath, positive cough positive congestion. Patient unable to catch his breath, does have significant pain when taking a deep breath as well - Related Data Home Medications Medication Instructions Recorded Confirmed Sertraline [Zoloft] 100 mg PO BID 01/27/16 08/17/17 Cholecalciferol [Vitamin D3] 5,000 unit PO DAILY 07/24/17 08/17/17 Dextroamphetamine/Amphetamine 15 mg PO DAILY PRN 07/24/17 08/17/17 [Adderall] Tamsulosin [Flomax] 0.4 mg PO HS 07/24/17 08/17/17 Previous Rx's Medication Instructions Recorded Amiodarone [Cordarone] 400 mg PO BID #60 tab 07/27/17 Aspirin 81 mg PO DAILY #30 chew 07/27/17 Atorvastatin [Lipitor] 80 mg PO DAILY #30 tab 07/27/17 Budesonide-Formot 160-4.5 Mcg 2 puff INHALATION BID #1 inhaler 07/27/17 [Symbicort 160-4.5 Mcg Inhaler] Ipratropium-Albuterol Nebulize 3 ml INHALATION RT-QID #120 07/27/17 [Duoneb 0.5 mg-3 mg/3 ml Soln] ampul.neb Metoprolol Tartrate [Lopressor] 25 mg PO TID #90 tab 07/27/17 Nicotine 21Mg/24Hr Patch [Habitrol] 1 patch TRANSDERM DAILY #30 patch 07/27/17 Nitroglycerin Sl Tabs [Nitrostat] 0.4 mg SUBLINGUAL Q5M PRN #25 tab 07/27/17 Ticagrelor [Brilinta] 90 mg PO BID #60 tab 07/27/17 predniSONE 10 mg PO DAILY #30 tab 07/27/17 Allergies Allergy/AdvReac Type Severity Reaction Status Date / Time No Known Allergies Allergy Verified 08/17/17 12:19 Review of Systems ROS Statement: Those systems with pertinent positive or pertinent negative responses have been documented in the HPI. ROS Other: All systems not noted in ROS Statement are negative. Past Medical History Past Medical History: Myocardial Infarction (ID) Additional Past Medical History / Comment(s): Palpable mass/ lump in neck Last Myocardial Infarction Date:: 2000 History of Any Multi-Drug Resistant Organisms: None Reported Past Surgical History: Heart Catheterization With Stent Past Anesthesia/Blood Transfusion Reactions: No Reported Reaction Date of Last Stent Placement:: 03/01/2001 Past Psychological History: Depression Smoking Status: Current some day smoker Past Alcohol Use History: None Reported - Past Family History Mother Family Medical History: Cancer Father Family Medical History: Cancer General Exam Limitations: no limitations General appearance: alert, in no apparent distress, anxious Head exam: Present: atraumatic, normocephalic, normal inspection Eye exam: Present: normal appearance, PERRL, EOMI. Absent: scleral icterus, conjunctival injection, periorbital swelling ENT exam: Present: normal exam, mucous membranes moist Neck exam: Present: normal inspection. Absent: tenderness, meningismus, lymphadenopathy Respiratory exam: Present: normal lung sounds bilaterally, wheezes, accessory muscle use, decreased breath sounds, prolonged expiratory. Absent: respiratory distress, rales, rhonchi, stridor Cardiovascular Exam: Present: regular rate, normal rhythm, normal heart sounds. Absent: systolic murmur, diastolic murmur, rubs, gallop, clicks GI/Abdominal exam: Present: soft, normal bowel sounds. Absent: distended, tenderness, guarding, rebound, rigid Extremities exam: Present: normal inspection, full ROM, normal capillary refill. Absent: tenderness, pedal edema, joint swelling, calf tenderness Back exam: Present: normal inspection Neurological exam: Present: alert, oriented X3, CN II-XII intact Psychiatric exam: Present: normal affect, normal mood Skin exam: Present: warm, dry, intact, normal color. Absent: rash Course Vital Signs 08/17/17 08/17/17 08/17/17 11:33 11:57 12:17 Temperature 97.6 F Pulse Rate 55 L 54 L 52 L Respiratory 24 Rate Blood Pressure 111/66 O2 Sat by Pulse 93 L Oximetry - Reevaluation(s) Reevaluation #1: 08/17/17 13:32 Patient with persistent shortness of breath and increased cough EKG Findings - EKG Comments: EKG Findings:: EKG shows sinus bradycardia rate of 57, CA 152, QRS 86, QTc 463 Medical Decision Making - Medical Decision Making 77 male the ER shortness of breath positive significant pneumonia will admit for IV antibiotics and breathing treatments. - Lab Data Result diagrams: 08/17/17 11:40 08/17/17 11:40 Lab Results 08/17/17 08/17/17 08/17/17 Range/Units 11:40 11:40 11:40 WBC 21.7 H (3.8-10.6) k/uL RBC 4.99 (4.30-5.90) m/uL Hgb 14.8 D (13.0-17.5) gm/dL Hct 44.2 (39.0-53.0) % MCV 88.5 (80.0-100.0) fL MCH 29.7 (25.0-35.0) pg MCHC 33.5 (31.0-37.0) g/dL RDW 14.5 (11.5-15.5) % Plt Count 124 L (150-450) k/uL Neutrophils % 93 % Lymphocytes % 2 % Monocytes % 4 % Eosinophils % 1 % Basophils % 0 % Neutrophils # 20.1 H (1.3-7.7) k/uL Lymphocytes # 0.4 L (1.0-4.8) k/uL Monocytes # 0.9 (0-1.0) k/uL Eosinophils # 0.1 (0-0.7) k/uL Basophils # 0.0 (0-0.2) k/uL PT (9.0-12.0) sec INR (<1.2) APTT (22.0-30.0) sec Sodium 144 (137-145) mmol/L Potassium 4.3 (3.5-5.1) mmol/L Chloride 106 (98-107) mmol/L Carbon Dioxide 25 (22-30) mmol/L Anion Gap 13 mmol/L BUN 36 H (9-20) mg/dL Creatinine 0.82 (0.66-1.25) mg/dL Est GFR (CKD-EPI)AfAm >90 (>60 ml/min/1.73 sqM) Est GFR (CKD-EPI)NonAf 85 (>60 ml/min/1.73 sqM) Glucose 93 (74-99) mg/dL Calcium 9.3 (8.4-10.2) mg/dL Magnesium 2.0 (1.6-2.3) mg/dL Total Bilirubin 0.8 (0.2-1.3) mg/dL AST 26 (17-59) U/L ALT 30 (21-72) U/L Alkaline Phosphatase 70 (38-126) U/L Total Creatine Kinase 45 L (55-170) U/L CK-MB (CK-2) 1.3 (0.0-2.4) ng/mL CK-MB (CK-2) Rel Index 2.9 Troponin I 0.023 (0.000-0.034) ng/mL NT-Pro-B Natriuret Pep pg/mL Total Protein 6.4 (6.3-8.2) g/dL Albumin 3.9 (3.5-5.0) g/dL 08/17/17 08/17/17 Range/Units 11:40 11:40 WBC (3.8-10.6) k/uL RBC (4.30-5.90) m/uL Hgb (13.0-17.5) gm/dL Hct (39.0-53.0) % MCV (80.0-100.0) fL MCH (25.0-35.0) pg MCHC (31.0-37.0) g/dL RDW (11.5-15.5) % Plt Count (150-450) k/uL Neutrophils % % Lymphocytes % % Monocytes % % Eosinophils % % Basophils % % Neutrophils # (1.3-7.7) k/uL Lymphocytes # (1.0-4.8) k/uL Monocytes # (0-1.0) k/uL Eosinophils # (0-0.7) k/uL Basophils # (0-0.2) k/uL PT 10.9 (9.0-12.0) sec INR 1.1 (<1.2) APTT 23.4 (22.0-30.0) sec Sodium (137-145) mmol/L Potassium (3.5-5.1) mmol/L Chloride (98-107) mmol/L Carbon Dioxide (22-30) mmol/L Anion Gap mmol/L BUN (9-20) mg/dL Creatinine (0.66-1.25) mg/dL Est GFR (CKD-EPI)AfAm (>60 ml/min/1.73 sqM) Est GFR (CKD-EPI)NonAf (>60 ml/min/1.73 sqM) Glucose (74-99) mg/dL Calcium (8.4-10.2) mg/dL Magnesium (1.6-2.3) mg/dL Total Bilirubin (0.2-1.3) mg/dL AST (17-59) U/L ALT (21-72) U/L Alkaline Phosphatase (38-126) U/L Total Creatine Kinase (55-170) U/L CK-MB (CK-2) (0.0-2.4) ng/mL CK-MB (CK-2) Rel Index Troponin I (0.000-0.034) ng/mL NT-Pro-B Natriuret Pep 2460 pg/mL Total Protein (6.3-8.2) g/dL Albumin (3.5-5.0) g/dL - Radiology Data Radiology results: report reviewed (Chest x-ray is positive for pneumonia), image reviewed Disposition Clinical Impression: Community acquired pneumonia Disposition: ADMITTED IP TO THIS HOSP Condition: Fair Is patient prescribed a controlled substance at d/c from ED?: No Referrals: Alphonso Baker MD [Primary Care Provider] - 1-2 days
[2017-08-17] MEDS ORDERED: IPRATROPIUM-ALBUTEROL 3 ML NEB INHALATION STA (11:49)
[2017-08-17 12:18] LABS: ALT 30 U/L (21-72); AST 26 U/L (17-59); Albumin 3.9 g/dL (3.5-5.0); Alkaline Phosphatase 70 U/L (38-126); Anion Gap 13 mmol/L; Blood Urea Nitrogen 36 mg/dL (9-20); Calcium 9.3 mg/dL (8.4-10.2); Carbon Dioxide 25 mmol/L (22-30); Chloride 106 mmol/L (98-107); Glucose 93 mg/dL (74-99); Sodium 144 mmol/L (137-145); Total Bilirubin 0.8 mg/dL (0.2-1.3); Total Protein 6.4 g/dL (6.3-8.2)
--- NOTE | 2017-08-17 12:18 | XR ---
EXAMINATION TYPE: XR chest 1V portable DATE OF EXAM: 08/17/2017 COMPARISON: 07/23/2017 chest x-ray and CT dated 09/30/2016 HISTORY: Shortness of breath with history of cardiac disease TECHNIQUE: Single frontal view of the chest is obtained. FINDINGS: There is new left basilar strand-like opacity. Pulmonary hyperinflation relates underlying COPD. Biapical pleural-parenchymal scarring is noted. Cardia mediastinal silhouette is similar to th e prior exam with prominence of the ascending and descending thoracic aorta. Osseous structures are g rossly intact with mild demineralization. IMPRESSION: New left basilar airspace disease suspicious for pneumonia. Additionally there is tortuo sity of the ascending and descending thoracic aorta that is similar to the prior, likely relating to the known aneurysmal dilatation of the ascending aorta.
[2017-08-17 12:19] LABS: Basophils % (A) 0 %; Eosinophils # (A) 0.1 k/uL (0-0.7); Eosinophils % (A) 1 %; HCT 44.2 % (39.0-53.0); Lymphocytes # (A) 0.4 k/uL (1.0-4.8); Lymphocytes % (A) 2 %; MCH 29.7 pg (25.0-35.0); MCHC 33.5 g/dL (31.0-37.0); MCV 88.5 fL (80.0-100.0); Mean Platelet Volume 7.5; Monocytes # (A) 0.9 k/uL (0-1.0); Monocytes % (A) 4 %; Neutrophils # (A) 20.1 k/uL (1.3-7.7); Neutrophils % (A) 93 %; Platelet Count 124 k/uL (150-450); RBC 4.99 m/uL (4.30-5.90); RDW 14.5 % (11.5-15.5); WBC 21.7 k/uL (3.8-10.6)
[2017-08-17 12:20] LABS: HGB 14.8 gm/dL (13.0-17.5); INR 1.1 (<1.2); Partial Thromboplastin Time 23.4 sec (22.0-30.0); Prothrombin Time 10.9 sec (9.0-12.0)
[2017-08-17 12:22] LABS: Potassium 4.3 mmol/L (3.5-5.1)
[2017-08-17 12:39] LABS: Creatine Kinase MB 1.3 ng/mL (0.0-2.4); Troponin I 0.023 ng/mL (0.000-0.034)
[2017-08-17] MEDS ORDERED: AZITHROMYCIN 500 MG in SODIUM CHLORIDE 0.9% 250 ML IVPB STA (13:30)
[2017-08-17] MEDS ORDERED: cefTRIAXone IN SWFI 1,000 MG/10 ML SYRINGE IVP STA (13:30)
[2017-08-17] MEDS ORDERED: ALBUTEROL NEBULIZED 2.5 MG/3 ML INHALATION STA (13:30)
[2017-08-17] MEDS ORDERED: PNEUMONIA PROTOCOL UTILIZED 1 EACH MISC PO PRN (13:30)
[2017-08-17] MEDS: SODIUM CHLORIDE 0.9% 1,000 ML IV SCH ×2 (14:05→22:57)
[2017-08-17] MEDS ORDERED: IPRATROPIUM-ALBUTEROL 3 ML NEB INHALATION SCH (16:00)
[2017-08-17] MEDS ORDERED: NITROGLYCERIN SL TABS 0.4 MG TAB SUBLINGUAL PRN (17:06)
[2017-08-17] MEDS: NICOTINE 21MG/24HR PATCH TRANSDERM SCH (18:24)
[2017-08-17] MEDS: METOPROLOL TARTRATE 25 MG TAB PO SCH (20:03)
[2017-08-17] MEDS: SERTRALINE 100 MG TAB PO SCH (20:04)
[2017-08-17] MEDS: TAMSULOSIN 0.4 MG CAP.ER.24H PO SCH (20:04)
[2017-08-17] MEDS: TICAGRELOR 90 MG TAB PO SCH (20:04)
[2017-08-17] MEDS: IPRATROPIUM-ALBUTEROL 3 ML NEB INHALATION SCH (20:42)
[2017-08-17] MEDS: SYMBICORT 160-4.5 MCG INHALER INHALATION SCH (20:42)
[2017-08-17] MEDS ORDERED: AMIODARONE 200 MG TAB PO SCH (21:00)
[2017-08-17] MEDS: methylPREDNISolone SOD SUCCI 40 MG/ML 1 ML VIAL IV SCH (23:42)
--- NOTE | 2017-08-17 23:49 | HP ---
HISTORY AND PHYSICAL DATE OF SERVICE: 08/17/2017 PRESENTING COMPLAINT: Short of breath. HISTORY OF PRESENTING COMPLAINT: This is a 77-year-old patient, very pleasant, follows with Dr. Baker out of [place]. Chronic stable medical conditions include BPH, nicotine dependence, coronary artery disease with a stent to the LAD last month, ischemic cardiomyopathy, ejection fraction 40%-45%, depression, BPH. The patient presents with 3 days of increasingly short of breath. Minimal cough. No sputum. No fever. Decreased appetite. Tired, run down. Denies any change in bowel or urine. The patient in July of this year had a stent placed to the LAD. The patient did have also paroxysmal atrial fibrillation for which patient was put on amiodarone. Denies any fever and chills. REVIEW OF SYSTEMS: CONSTITUTIONAL: Tired. HEENT: None. RESPIRATORY: Baseline some short of breath. CARDIOVASCULAR: None. GASTROINTESTINAL: None. GENITOURINARY: Some BPH symptoms. DERMATOLOGICAL: None. HEMATOLOGICAL: None. LYMPHATICS: None. PSYCHIATRY: Depression, anxiety. NEUROLOGICAL: None. PAST MEDICAL HISTORY: 1. Paroxysmal atrial fibrillation, coronary artery disease with stent to the LAD and a prior stent in 2010. 2. Ischemic cardiomyopathy, EF 40%-45%. 3. Depression. 4. COPD. 5. BPH. PAST SURGICAL HISTORY: Cardiac catheterization with stent in 2017 and 2000, bilateral cataract removal, right lower jawbone with right hip bone graft from the area, circumcision. PSYCHIATRIC HISTORY: Depression. SOCIAL HISTORY: The patient continues to smoke about half a pack a day at least. Quit drinking 17 years ago. The patient has been smoking for over 55 years. HOME MEDICATIONS: 1. Flomax 0.4 mg q.h.s. 2. Adderall 50 mg p.o. daily p.r.n. 3. Prednisone 10 mg a day. 4. Brilinta 90 mg b.i.d. 5. Zoloft 100 mg b.i.d. 6. Nitrostat 0.4 sublingual q.5 p.r.n. 7. Nicotine 21-mg patch. 8. Lopressor 25 p.o. t.i.d. 9. DuoNeb q.i.d. 10.Vitamin D3 5000 units p.o. daily. 11.Symbicort 160/4.5, 2 puffs b.i.d. 12.Lipitor 80 mg p.o. daily. 13.Aspirin 81 mg p.o. daily. 14.Amiodarone 100 mg p.o. b.i.d. ALLERGIES: None. EXAMINATION: Temperature 99.1, pulse 61, respirations 18, blood pressure 98/53, pulse ox 95% on 4L. GENERAL APPEARANCE: Average built, sitting on bed, awake. EYES: Pupils equal. Conjunctivae normal. HEENT: External appearance of nose and ears normal. Oral cavity normal. NECK: JVD not raised. Mass not palpable. RESPIRATORY: Effort increased. LUNGS: Diminished breath sounds. Prolonged expiration, wheezing. CARDIOVASCULAR: First and second sounds normal. No edema. ABDOMEN: Soft, nontender. Liver and spleen not palpable. PSYCHIATRY: Alert and oriented x3. Mood and affect normal. NEUROLOGICAL: Pupils equal. Cranial nerves grossly intact. Power and sensation grossly intact. INVESTIGATIONS: White count 21.7, hemoglobin 14.8, platelets 124. Potassium 4.3, BUN 36, creatinine 0.82. ProBNP is 2460. Influenza A and B negative. EKG: Sinus bradycardia, nonspecific T-wave changes, ST changes. Chest x-ray shows prominent pulmonary arteries and new left basilar airspace disease. ASSESSMENT: 1. Left lower lobe pneumonia. 2. Coronary artery disease with stent to the left anterior descending in July of 2017 and additionally few years ago. 3. Ischemic cardiomyopathy, ejection fraction 40%-45%. 4. Depression, not otherwise specified. 5. Acute chronic obstructive pulmonary disease exacerbation in a current smoker. 6. Chronic nicotine dependence. Patient is an active cigarette smoker. 7. Benign prostatic hypertrophy. PLAN: The patient started on IV ceftriaxone and Zithromax and nebulized bronchodilators. Will also add IV Solu-Medrol. Home medications are resumed. Care was discussed with the patient. Questions were answered. MMODL / IJN: [id number] /
[2017-08-18] MEDS: SYMBICORT 160-4.5 MCG INHALER INHALATION SCH ×2 (07:36→19:35)
[2017-08-18] MEDS: IPRATROPIUM-ALBUTEROL 3 ML NEB INHALATION SCH ×4 (07:37→19:35)
[2017-08-18] MEDS: ATORVASTATIN 80 MG TAB PO SCH (07:53)
[2017-08-18] MEDS: methylPREDNISolone SOD SUCCI 40 MG/ML 1 ML VIAL IV SCH ×3 (07:53→23:55)
[2017-08-18] MEDS: METOPROLOL TARTRATE 25 MG TAB PO SCH ×3 (07:54→20:19)
[2017-08-18] MEDS: NICOTINE 21MG/24HR PATCH TRANSDERM SCH (07:54)
[2017-08-18] MEDS: SODIUM CHLORIDE 0.9% 1,000 ML IV SCH ×2 (07:54→12:42)
[2017-08-18] MEDS: SERTRALINE 100 MG TAB PO SCH ×2 (07:54→20:18)
[2017-08-18] MEDS: ASPIRIN 81 MG PO SCH (07:54)
[2017-08-18] MEDS: TICAGRELOR 90 MG TAB PO SCH ×2 (07:54→20:18)
[2017-08-18] MEDS: ENOXAPARIN 40 MG/0.4 ML SYRINGE SQ SCH (07:55)
--- NOTE | 2017-08-18 08:22 | XR ---
EXAMINATION TYPE: XR chest 2V DATE OF EXAM: 08/18/2017 COMPARISON: Prior chest x-ray 08/17/2017 HISTORY: Pneumonia TECHNIQUE: Frontal and lateral views of the chest are obtained. FINDINGS: Prominent lung volumes suggest underlying COPD. Interstitium is increased. There are coron baljit artery calcifications. No evident pneumothorax or sizable effusion. Cardiomediastinal silhouette, pulmonary vascularity and armani show a similar appearance. There is some improvement in aeration at t he lung bases. Ascending aorta is prominent. IMPRESSION: Suspect some interval improvement in aeration. Correlate for possible volume overload, p ulmonary venous hypertension and interstitial edema, interstitial lung disease. Emphysema. Additional follow-up is suggested. Aortic aneurysm.
[2017-08-18] MEDS ORDERED: FUROSEMIDE 10 MG/ML 4 ML VIAL IV STA (09:55)
[2017-08-18] MEDS: cefTRIAXone IN SWFI 1,000 MG/10 ML SYRINGE IVP SCH (11:14)
[2017-08-18 11:22] LABS: Anion Gap 14 mmol/L; Blood Urea Nitrogen 28 mg/dL (9-20); Calcium 8.6 mg/dL (8.4-10.2); Carbon Dioxide 21 mmol/L (22-30); Chloride 109 mmol/L (98-107); Glucose 197 mg/dL (74-99); Potassium 3.7 mmol/L (3.5-5.1); Sodium 144 mmol/L (137-145)
[2017-08-18 11:28] LABS: Basophils % (A) 0 %; Eosinophils % (A) 0 %; HCT 38.7 % (39.0-53.0); HGB 12.4 gm/dL (13.0-17.5); Lymphocytes # (A) 0.2 k/uL (1.0-4.8); Lymphocytes % (A) 1 %; MCH 29.2 pg (25.0-35.0); MCHC 32.2 g/dL (31.0-37.0); MCV 90.7 fL (80.0-100.0); Mean Platelet Volume 7.6; Monocytes # (A) 0.1 k/uL (0-1.0); Monocytes % (A) 1 %; Neutrophils # (A) 10.9 k/uL (1.3-7.7); Neutrophils % (A) 97 %; RBC 4.26 m/uL (4.30-5.90); RDW 14.4 % (11.5-15.5); WBC 11.2 k/uL (3.8-10.6)
[2017-08-18 12:11] LABS: Platelet Count 73 k/uL (150-450)
[2017-08-18 12:12] LABS: Poikilocytosis (M) Present
[2017-08-18] MEDS: AZITHROMYCIN 500 MG TAB PO SCH (12:44)
[2017-08-18] MEDS: AMIODARONE 200 MG TAB PO SCH (12:44)
[2017-08-18] MEDS ORDERED: AZITHROMYCIN 500 MG in SODIUM CHLORIDE 0.9% 250 ML IVPB SCH (13:00)
--- NOTE | 2017-08-18 13:47 | P.CNPUL ---
History of Present Illness Consult date: 08/18/17 Requesting physician: aCmpbell Ingram Reason for consult: dyspnea, cough, chest pain, COPD, abnormal CXR/CT Chief complaint: Dyspnea, chest heaviness, chills History of present illness: Mr. Schwartz is a 77-year-old white male patient of Dr. Baker, presented to the emergency department on 08/17/2017 at 1147 with complaints of increasing shortness of breath, chills, cough with production of yellow sputum. Patient was recently hospitalized in July for a non-ST elevated [place], and had undergone stenting of his diagonal coronary artery on 07/24/2017. Echocardiogram on 07/24 showed impaired left ventricular systolic function with EF of 40-45%, mild pulmonary hypertension With right ventricular systolic pressure of 43 mmHg , mild aortic stenosis and regurgitation, and mild MR and TR. Patient states he has been gradually becoming more dyspneic since his last hospitalization, initially with exertion but in the last few days he is also dyspneic at rest and with conversation. He reports intermittent episodes of sternal heaviness lasting less than 5 minutes, without any precipitating factors. He had seen Dr. Meza in the pulmonary office for his emphysema, his FEV1 is 68% of predicted, consistent with moderately severe COPD, GOLD stage II. He was last seen by Dr. Meza in October 2016, and he was prescribed Bevespi in addition to albuterol nebulized treatments. Patient is currently on Symbicort, which was given to him his PCP, and albuterol nebulized treatments. Not on any oxygen at his baseline. Patient denied any swelling in his lower legs, or abdomen. Chest x-ray on 08/17/2017 showed a new left basilar airspace disease, that was suspicious for pneumonia. There was tortuous A ascending and descending thoracic aorta similar to prior exams. EKG showed sinus bradycardia, without any acute ischemic changes. Note that during his previous admission patient also had paroxysmal A. fib, and was placed on amiodarone at 400 mg twice daily. Patient is a current smoker, although he did cut down 10-15 cigarettes a day since his myocardial infarction in July 2017, but carries over [id number] smoking history. Patient has been afebrile during his hospitalization, placed on supplemental oxygen of 4 L per nasal cannula with pulse ox of 98%. There was leukocytosis noted on admission, with WBC of 21.7, electrolytes were within normal limits, proBNP was mildly elevated at 2460, troponin and cardiac enzymes were negative 1. Influenza screen was negative. Plasma lactic acid was 1.3. Patient was started on combination of azithromycin and Rocephin, nebulized bronchodilators, and were asked to see the patient in consultation for a left lower community-acquired pneumonia. Review of Systems All systems: negative Constitutional: Denies chills, Denies fever Eyes: denies blurred vision, denies pain Ears, nose, mouth and throat: Denies headache, Denies sore throat Cardiovascular: Reports decreased exercise tolerance, Reports dyspnea on exertion, Denies chest pain, Denies shortness of breath Respiratory: Reports cough with sputum, Reports dyspnea, Denies cough Gastrointestinal: Denies abdominal pain, Denies diarrhea, Denies nausea, Denies vomiting Musculoskeletal: Denies myalgias Integumentary: Denies pruritus, Denies rash Neurological: Denies numbness, Denies weakness Psychiatric: Denies anxiety, Denies depression Endocrine: Denies fatigue, Denies weight change Past Medical History Past Medical History: Atrial Fibrillation, Coronary Artery Disease (CAD), COPD, Hyperlipidemia, Hypertension, Myocardial Infarction ([place]), Prostate Disorder Additional Past Medical History / Comment(s): Pt recently admitted 07/24/17 [facility] with NSTEMI, bronchitis, home O2 prn, BPH, enlarged salivary gland R side. 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 Past Anesthesia/Blood Transfusion Reactions: No Reported Reaction Date of Last Stent Placement:: 07/24/17 Smoking Status: Current every day smoker - Past Family History Mother Family Medical History: Cancer Additional Family Medical History / Comment(s): Mother had pancreatic cancer. Father Family Medical History: Cancer Additional Family Medical History / Comment(s): Father had lung cancer. Medications and Allergies Home Medications Medication Instructions Recorded Confirmed Type Sertraline [Zoloft] 100 mg PO BID 01/27/16 08/17/17 History Cholecalciferol [Vitamin D3] 5,000 unit PO DAILY 07/24/17 08/17/17 History Dextroamphetamine/Amphetamine 15 mg PO DAILY PRN 07/24/17 08/17/17 History [Adderall] Tamsulosin [Flomax] 0.4 mg PO HS 07/24/17 08/17/17 History Amiodarone [Cordarone] 400 mg PO BID #60 tab 07/27/17 08/17/17 Rx Aspirin 81 mg PO DAILY #30 chew 07/27/17 08/17/17 Rx Atorvastatin [Lipitor] 80 mg PO DAILY #30 tab 07/27/17 08/17/17 Rx Budesonide-Formot 160-4.5 Mcg 2 puff INHALATION BID #1 inhaler 07/27/17 Rx [Symbicort 160-4.5 Mcg Inhaler] Ipratropium-Albuterol Nebulize 3 ml INHALATION RT-QID #120 07/27/17 08/17/17 Rx [Duoneb 0.5 mg-3 mg/3 ml Soln] ampul.neb Metoprolol Tartrate [Lopressor] 25 mg PO TID #90 tab 07/27/17 08/17/17 Rx Nicotine 21Mg/24Hr Patch [Habitrol] 1 patch TRANSDERM DAILY #30 patch 07/27/17 08/17/17 Rx Nitroglycerin Sl Tabs [Nitrostat] 0.4 mg SUBLINGUAL Q5M PRN #25 tab 07/27/17 Rx Ticagrelor [Brilinta] 90 mg PO BID #60 tab 07/27/17 08/17/17 Rx predniSONE 10 mg PO DAILY #30 tab 07/27/17 08/17/17 Rx Allergies Allergy/AdvReac Type Severity Reaction Status Date / Time No Known Allergies Allergy Verified 08/17/17 12:19 Physical Exam Vitals: Vital Signs Temp Pulse Pulse Resp BP BP Pulse Ox 08/18/17 07:49 60 08/18/17 07:37 60 08/18/17 06:36 98 F 73 20 114/71 98 08/17/17 23:00 98.8 F 68 24 104/65 95 08/17/17 20:55 60 08/17/17 20:43 60 08/17/17 19:52 99.1 F 61 18 98/53 95 08/17/17 15:00 97.1 F L 67 22 116/68 96 08/17/17 14:45 98.4 F 63 23 115/74 98 08/17/17 14:12 62 08/17/17 13:51 61 08/17/17 13:33 60 20 114/64 95 08/17/17 12:17 52 L 08/17/17 11:57 54 L 08/17/17 11:33 97.6 F 55 L 24 111/66 93 L Intake and Output 08/17/17 08/18/17 08/18/17 22:59 06:59 14:59 Intake Total 400 100 Output Total 1 Balance 399 100 Intake: Oral 400 100 Output: Stool 1 Other: Voiding Method Toilet Urinal # Voids 2 1 # Bowel Movements 1 Weight 61 kg 77-year-old white male patient resting in bed, currently on 4 L per nasal cannula, moderately dyspneic with conversation - Constitutional General appearance: average body habitus, no acute distress - EENT Eyes: EOMI, PERRLA, dentition normal ENT: NA/AT Ears: bilateral: normal - Neck Patient has a right submandibular salivary gland enlargement Neck: no lymphadenopathy Carotids: bilateral: upstroke normal Thyroid: bilateral: normal size - Respiratory Respiratory: bilateral: rales (Coarse inspiratory rales over left posterior lower lobe), wheezing, prolonged expiration - Cardiovascular Rhythm: regular Heart sounds: normal: S1, S2 ankle Peripheral Edema: bilateral: None dorsalis pedis Peripheral Pulses: bilateral: Normal radial pulse Peripheral Pulses: bilateral: Normal - Gastrointestinal General gastrointestinal: no organomegaly, soft, no tenderness - Integumentary Integumentary: normal turgor - Neurologic Neurologic: CNII-XII intact - Musculoskeletal Musculoskeletal: gait normal, strength equal bilaterally - Psychiatric Psychiatric: A&O x's 3, appropriate affect, intact judgment & insight Results - Laboratory Findings CBC and BMP: 08/18/17 10:26 08/18/17 10:26 PT/INR, D-dimer PT 10.9 sec (9.0-12.0) 08/17/17 11:40 INR 1.1 (<1.2) 08/17/17 11:40 Abnormal lab findings: Abnormal Labs 08/17/17 08/17/17 08/17/17 11:40 11:40 11:40 WBC 21.7 H Plt Count 124 L Neutrophils # 20.1 H Lymphocytes # 0.4 L BUN 36 H Total Creatine Kinase 45 L - Diagnostic Findings Chest x-ray: report reviewed, image reviewed Additional studies: Twelve-lead EKG reviewed Assessment and Plan Plan: Assessment: #1. Acute left lower community acquired pneumonia #2. A component of fluid overload, and echo from 07/24/2017 showed an impaired left ventricular systolic function with an EF of 40-45% #3. Acute exacerbation of moderately severe COPD, with FEV1 of 68% of predicted , GOLD stage II #4. Recent hospitalization for non-ST elevated [place] in July 2017 #5. Chronic and ongoing nicotine dependence, currently down to 10-15 cigarettes a day, but carries over 65 year smoking history #6. Coronary artery disease, with previous stenting, with most recent stent placed on 07/24/2017 to the diagonal coronary artery #7. Paroxysmal atrial fibrillation, in sinus rhythm, patient is on amiodarone #8. BPH #9. Depression Plan: Continue empiric antibiotics, will obtain a sputum culture, continue steroids and nebulized bronchodilators. Patient will be given a dose of IV Lasix this morning. Follow-up chest x-ray shows a component of fluid overload. Continue monitoring labs, renal function, electrolytes. Smoking cessation was strongly encouraged, continue Symbicort. We'll decrease the IV fluids down to KVO. I performed a history & physical examination of the patient and discussed their management with my nurse practitioner, Carlene Castillo. I reviewed the nurse practitioner's note and agree with the documented findings and plan of care. Lung sounds are positive for scattered wheezes and left lower lobe rales. The findings and the impression was discussed with the patient. I attest to the documentation by the nurse practitioner. Time with Patient: Greater than 30
[2017-08-18] MEDS: TAMSULOSIN 0.4 MG CAP.ER.24H PO SCH (20:19)
--- NOTE | 2017-08-18 21:53 | PN ---
PROGRESS NOTE DATE OF SERVICE: 08/18/2017. PRESENTING COMPLAINT: Short of breath, wheezing. INTERVAL HISTORY: This patient, who is a smoker, presented with COPD exacerbation, pneumonia, cough. Some sputum was produced. Breathing is slightly better. Did tolerate some diet. Patient's daughter and son-in-law are present. REVIEW OF SYSTEMS: Done for constitutional, cardiovascular, GI, pulmonary; relevant findings as above. CURRENT MEDICATIONS: Reviewed. They include: 1. DuoNeb. 2. Cordarone. 3. Zithromax. 4. Ceftriaxone. 5. IV Solu-Medrol. PHYSICAL EXAMINATION: Temperature 98.1, pulse 65, respiration 22, blood pressure 107/64, pulse ox 97% on 4 L. GENERAL APPEARANCE: Lying in bed. More perky. EYES: Pupils equal. Conjunctivae normal. HEENT: External appearance of nose and ears normal. Oral cavity normal. NECK: JVD not raised. Mass not palpable. RESPIRATORY: Effort normal. LUNGS: Decreased breath sounds. Prolonged expiration. Less wheezing. CARDIOVASCULAR: First and second sounds normal. No edema. ABDOMEN: Soft, non-tender. Liver and spleen not palpable. PSYCHIATRY: Alert and oriented x3. Mood and affect normal. INVESTIGATIONS: White count 11.2, hemoglobin 12.4, potassium 3.7, BUN 28, creatinine 0.86. ASSESSMENT: 1. Left lower lobe pneumonia. Suspect Gram-negative organism. 2. Coronary artery disease with prior history of stent to the LAD in July 2017 and another one a few years ago. 3. Ischemic cardiomyopathy, ejection fraction 40% to 45%. 4. Depression not otherwise specified. 5. Acute chronic obstructive pulmonary disease exacerbation in a current smoker. 6. Chronic nicotine dependence. Patient is an active cigarette smoker. 7. Benign prostatic hypertrophy. PLAN: Continue the patient on IV antibiotics, nebulized bronchodilators, steroids. Care was discussed with the patient. Patient is keen to go home. Smoking cessation counseling was done at length with the patient and family members who were present. Several aspects of the case were discussed, including primarily the effect on COPD and how it counters the effect of medications. More than 3 minutes was spent on this aspect of the case. MMODL / IJN: [id number] /
[2017-08-19 06:35] VITALS: BP 117/78; RESP 20; TEMP 98.3
[2017-08-19] MEDS: SYMBICORT 160-4.5 MCG INHALER INHALATION SCH (07:55)
[2017-08-19] MEDS: IPRATROPIUM-ALBUTEROL 3 ML NEB INHALATION SCH ×2 (07:55→12:32)
[2017-08-19] MEDS: ENOXAPARIN 40 MG/0.4 ML SYRINGE SQ SCH (08:27)
[2017-08-19] MEDS: METOPROLOL TARTRATE 25 MG TAB PO SCH (08:27)
[2017-08-19] MEDS: NICOTINE 21MG/24HR PATCH TRANSDERM SCH (08:27)
[2017-08-19] MEDS: SERTRALINE 100 MG TAB PO SCH (08:28)
[2017-08-19] MEDS: AMIODARONE 200 MG TAB PO SCH (08:28)
[2017-08-19] MEDS: ATORVASTATIN 80 MG TAB PO SCH (08:28)
[2017-08-19] MEDS: methylPREDNISolone SOD SUCCI 40 MG/ML 1 ML VIAL IV SCH (08:28)
[2017-08-19] MEDS: TICAGRELOR 90 MG TAB PO SCH (08:28)
[2017-08-19] MEDS: ASPIRIN 81 MG PO SCH (08:28)
--- NOTE | 2017-08-19 11:35 | P.PN ---
Subjective Progress Note Date: 08/19/17 Principal diagnosis: Acute left lower lobe community acquired pneumonia Mr. Schwartz is a 77-year-old white male patient of Dr. Baker, presented to the emergency department on 08/17/2017 at 1147 with complaints of increasing shortness of breath, chills, cough with production of yellow sputum. Patient was recently hospitalized in July for a non-ST elevated CT, and had undergone stenting of his diagonal coronary artery on 07/24/2017. Echocardiogram on 07/24 showed impaired left ventricular systolic function with EF of 40-45%, mild pulmonary hypertension With right ventricular systolic pressure of 43 mmHg , mild aortic stenosis and regurgitation, and mild MR and TR. Patient states he has been gradually becoming more dyspneic since his last hospitalization, initially with exertion but in the last few days he is also dyspneic at rest and with conversation. He reports intermittent episodes of sternal heaviness lasting less than 5 minutes, without any precipitating factors. He had seen Dr. Meza in the pulmonary office for his emphysema, his FEV1 is 68% of predicted, consistent with moderately severe COPD, GOLD stage II. He was last seen by Dr. Meza in October 2016, and he was prescribed Bevespi in addition to albuterol nebulized treatments. Patient is currently on Symbicort, which was given to him his PCP, and albuterol nebulized treatments. Not on any oxygen at his baseline. Patient denied any swelling in his lower legs, or abdomen. Chest x-ray on 08/17/2017 showed a new left basilar airspace disease, that was suspicious for pneumonia. There was tortuous A ascending and descending thoracic aorta similar to prior exams. EKG showed sinus bradycardia, without any acute ischemic changes. Note that during his previous admission patient also had paroxysmal A. fib, and was placed on amiodarone at 400 mg twice daily. Patient is a current smoker, although he did cut down 10-15 cigarettes a day since his myocardial infarction in July 2017, but carries over [id number] smoking history. Patient has been afebrile during his hospitalization, placed on supplemental oxygen of 4 L per nasal cannula with pulse ox of 98%. There was leukocytosis noted on admission, with WBC of 21.7, electrolytes were within normal limits, proBNP was mildly elevated at 2460, troponin and cardiac enzymes were negative 1. Influenza screen was negative. Plasma lactic acid was 1.3. Patient was started on combination of azithromycin and Rocephin, nebulized bronchodilators, and were asked to see the patient in consultation for a left lower community-acquired pneumonia. On 08/19/2017 patient seen in follow-up on medical surgical floor. He is resting in bed, in no acute distress. Patient reports his breathing easier today, FiO2 down to 2 L per nasal cannula, with a pulse ox of 98%. Vital signs are stable, patient is afebrile. Lung sounds are positive for a few scattered wheezes on the right, a few inspiratory crackles on the left lower area of posterior lung. Overall improving, yesterday's blood work showed WBC is down to 11.2 from 21.7 on admission. Platelet count did go down to 73 from 124, patient is on Lovenox. Patient did receive a dose of IV Lasix for what appeared to be fluid overload on yesterday's chest x-ray. No chest pain, no worsening dyspnea, patient has only occasional cough with production of small amount of yellow sputum. Blood cultures are negative to date. Continues on empiric antibiotics in the form of Rocephin and azithromycin, continues on Symbicort and nebulized treatments. Objective - Vital Signs Vital signs: Vital Signs Temp 98.3 F 08/19/17 06:33 Pulse 68 08/19/17 08:10 Resp 20 08/19/17 06:33 BP 117/78 08/19/17 06:33 Pulse Ox 98 08/19/17 06:33 Intake & Output 08/18/17 08/19/17 08/19/17 18:59 06:59 18:59 Output Total 600 150 Balance -600 -150 Output: Urine 600 150 Other: Voiding Method Toilet Toilet Urinal Urinal # Voids 1 - Exam 77-year-old white male patient resting in bed, currently on 4 L per nasal cannula, moderately dyspneic with conversation - Constitutional General appearance: average body habitus, no acute distress - EENT Eyes: EOMI, PERRLA, dentition normal ENT: NA/AT Ears: bilateral: normal - Neck Patient has a right submandibular salivary gland enlargement Neck: no lymphadenopathy Carotids: bilateral: upstroke normal Thyroid: bilateral: normal size - Respiratory Respiratory: bilateral: rales (few inspiratory rales over left posterior lower lobe), scattered wheezing on the right - Cardiovascular Rhythm: regular Heart sounds: normal: S1, S2 ankle Peripheral Edema: bilateral: None dorsalis pedis Peripheral Pulses: bilateral: Normal radial pulse Peripheral Pulses: bilateral: Normal - Gastrointestinal General gastrointestinal: no organomegaly, soft, no tenderness - Integumentary Integumentary: normal turgor - Neurologic Neurologic: CNII-XII intact - Musculoskeletal Musculoskeletal: gait normal, strength equal bilaterally - Psychiatric Psychiatric: A&O x's 3, appropriate affect, intact judgment & insight - Labs CBC & Chem 7: 08/18/17 10:26 08/18/17 10:26 Labs: Abnormal Lab Results - Last 24 Hours (Table) 08/18/17 Range/Units 10:26 WBC 11.2 H (3.8-10.6) k/uL RBC 4.26 L (4.30-5.90) m/uL Hgb 12.4 L (13.0-17.5) gm/dL Hct 38.7 L (39.0-53.0) % Plt Count 73 L (150-450) k/uL Neutrophils # 10.9 H (1.3-7.7) k/uL Lymphocytes # 0.2 L (1.0-4.8) k/uL Microbiology - Last 24 Hours (Table) 08/17/17 13:45 Blood Culture - Preliminary Blood No Growth after 24 hours Assessment and Plan Plan: Assessment: #1. Acute left lower community acquired pneumonia #2. A component of fluid overload, resolved, and echo from 07/24/2017 showed an impaired left ventricular systolic function with an EF of 40-45% #3. Acute exacerbation of moderately severe COPD, with FEV1 of 68% of predicted , GOLD stage II #4. Recent hospitalization for non-ST elevated CT in July 2017 #5. Chronic and ongoing nicotine dependence, currently down to 10-15 cigarettes a day, but carries over 65 year smoking history #6. Coronary artery disease, with previous stenting, with most recent stent placed on 07/24/2017 to the diagonal coronary artery #7. Paroxysmal atrial fibrillation, in sinus rhythm, patient is on amiodarone #8. BPH #9. Depression Plan: Patient is improving, less short of breath, FiO2 is down to 2 L. Will encourage ambulation, will obtain room air oxygen. No fever no chills, no hemoptysis, no chest wall tenderness. No acute events overnight. Continue with empiric antibiotic coverage, cultures are negative to date. Patient is hoping to be able to go home today. I performed a history & physical examination of the patient and discussed their management with my nurse practitioner, Carlene Castillo. I reviewed the nurse practitioner's note and agree with the documented findings and plan of care. Lung sounds are positive for scattered wheezes and left lower lobe rales. The findings and the impression was discussed with the patient. I attest to the documentation by the nurse practitioner. Time with Patient: Less than 30
[2017-08-19] MEDS: AZITHROMYCIN 500 MG TAB PO SCH (12:52)
[2017-08-19] MEDS: cefTRIAXone IN SWFI 1,000 MG/10 ML SYRINGE IVP SCH (12:52)
[2017-08-19 13:45] VITALS: PULSE 63
--- NOTE | 2017-08-19 16:16 | P.CRDCN ---
History of Present Illness Consult date: 08/19/17 History of present illness: Mr. Schwartz is a pleasant 77-year-old male past medical history significant for coronary artery disease, paroxysmal atrial fibrillation, COPD, dyslipidemia, hypertension, and chronic nicotine dependence. He was recently admitted to the hospital with NSTEMI and underwent coronary angiography which revealed 100% occluded diagonal branch which was successfully stented. He follows with Dr. Mclaughlin in the office. We have been asked to see him in consultation just prior to discharge per patient request. He apparently came into the hospital 08/17 with complaints of shortness of breath and cough. He was diagnosed with pneumonia and has been receiving IV antibiotics and steroids as well as one dose of IV lasix. At the time of my exam he is seen sitting up in the chair dressed and ready to be discharged. He states his breathing seems better since admission but he continues to feel mildly dyspneic with exertion. EKG on arrival reveals sinus bradycardia with nonspecific T-wave abnormality. No acute ST changes. Consistent with old EKG. Chest x-ray on admission shows new left basilar airspace disease suspicious for pneumonia. Repeat the following day shows possible volume overload, pulmonary venous hypertension and interstitial edema with interstitial lung disease, emphysema. Laboratory data reviewed, WBC and admission 21.7 down to 11.2, hemoglobin 12.4, platelets 73 down from 124 on admission, sodium 144, potassium 3.7, creatinine 0.86, cardiac enzymes negative 1, proBNP 2416 on admission. Current cardiac medications include Brillinta 90 mg twice a day, Lopressor 25 mg 3 times a day, atorvastatin 80 mg daily, aspirin 81 mg daily, amiodarone has been titrated down to 200 mg daily. Most recent echocardiogram performed July 24 reveals impaired left ventricular systolic function with ejection fraction 40-45%, mild pulmonary hypertension with RVSP of 43 mmHg, mild aortic stenosis, mild aortic regurgitation and mild MR and TR. Review of Systems At the time of my exam: CONSTITUTIONAL: Denies fever. Denies chills. EYES: Denies blurred vision. Denies vision changes. Denies eye pain. EARS, NOSE, MOUTH & THROAT: Denies headache. Denies sore throat. Denies ear pain. CARDIOVASCULAR: Denies chest pain. Complains of mild but improving exertional shortness of breath. Denies orthopnea. Denies PND. Denies palpitations. RESPIRATORY: Denies cough. GASTROINTESTINAL: Denies abdominal pain. Denies diarrhea. Denies constipation. Denies nausea. Denies vomiting. MUSCULOSKELETAL: Denies myalgias. INTEGUMENTARY: Denies pruitis. Denies rash. NEUROLOGIC: Denies numbness. Denies tingling. Denies weakness. PSYCHIATRIC: Denies anxiety. Denies depression. ENDOCRINE: Denies fatigue. Denies weight change. Denies polydipsia. Denies polyurina. GENITOURINARY: Denies burning, hematuria or urgency with micturation. HEMATOLOGIC: Denies history of anemia. Denies bleeding. Past Medical History Past Medical History: Atrial Fibrillation, Coronary Artery Disease (CAD), COPD, Hyperlipidemia, Hypertension, Myocardial Infarction ([place]), Prostate Disorder Additional Past Medical History / Comment(s): Pt recently admitted 07/24/17 [facility] with NSTEMI, bronchitis, home O2 prn, BPH, enlarged salivary gland R side. 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 Past Anesthesia/Blood Transfusion Reactions: No Reported Reaction Date of Last Stent Placement:: 07/24/17 Smoking Status: Current every day smoker - Past Family History Mother Family Medical History: Cancer Additional Family Medical History / Comment(s): Mother had pancreatic cancer. Father Family Medical History: Cancer Additional Family Medical History / Comment(s): Father had lung cancer. Medications and Allergies Home Medications Medication Instructions Recorded Confirmed Type Sertraline [Zoloft] 100 mg PO BID 01/27/16 08/17/17 History Cholecalciferol [Vitamin D3] 5,000 unit PO DAILY 07/24/17 08/17/17 History Dextroamphetamine/Amphetamine 15 mg PO DAILY PRN 07/24/17 08/17/17 History [Adderall] Tamsulosin [Flomax] 0.4 mg PO HS 07/24/17 08/17/17 History Aspirin 81 mg PO DAILY #30 chew 07/27/17 08/17/17 Rx Atorvastatin [Lipitor] 80 mg PO DAILY #30 tab 07/27/17 08/17/17 Rx Budesonide-Formot 160-4.5 Mcg 2 puff INHALATION BID #1 inhaler 07/27/17 Rx [Symbicort 160-4.5 Mcg Inhaler] Ipratropium-Albuterol Nebulize 3 ml INHALATION RT-QID #120 07/27/17 08/17/17 Rx [Duoneb 0.5 mg-3 mg/3 ml Soln] ampul.neb Nicotine 21Mg/24Hr Patch [Habitrol] 1 patch TRANSDERM DAILY #30 patch 07/27/17 08/17/17 Rx Nitroglycerin Sl Tabs [Nitrostat] 0.4 mg SUBLINGUAL Q5M PRN #25 tab 07/27/17 Rx Ticagrelor [Brilinta] 90 mg PO BID #60 tab 07/27/17 08/17/17 Rx predniSONE 10 mg PO DAILY #30 tab 07/27/17 08/17/17 Rx Amiodarone [Cordarone] 100 mg PO DAILY tab 08/19/17 Rx Azithromycin [Zithromax] 500 mg PO Q24H #3 tab 08/19/17 Rx Metoprolol Tartrate [Lopressor] 25 mg PO BID tab 08/19/17 Rx Nicotine 21Mg/24Hr Patch [Habitrol] 1 each TRANSDERM DAILY #30 patch 08/19/17 Rx Spironolactone [Aldactone] 25 mg PO DAILY tab 08/19/17 Rx predniSONE 10 mg PO DAILY #30 tab 08/19/17 Rx Allergies Allergy/AdvReac Type Severity Reaction Status Date / Time No Known Allergies Allergy Verified 08/17/17 12:19 Physical Exam Vitals: Vital Signs Temp Pulse Pulse Pulse Pulse Resp BP 08/19/17 13:40 81 63 08/19/17 12:47 68 08/19/17 12:33 68 08/19/17 11:02 08/19/17 08:10 68 08/19/17 07:55 68 08/19/17 06:33 98.3 F 67 20 117/78 08/18/17 22:00 97.8 F 60 16 08/18/17 19:46 66 08/18/17 19:35 68 08/18/17 16:12 66 08/18/17 16:02 66 BP Pulse Ox Pulse Ox Pulse Ox Pulse Ox 08/19/17 13:40 94 L 95 90 L 08/19/17 12:47 08/19/17 12:33 08/19/17 11:02 95 08/19/17 08:10 08/19/17 07:55 08/19/17 06:33 98 08/18/17 22:00 103/67 97 08/18/17 19:46 08/18/17 19:35 08/18/17 16:12 08/18/17 16:02 Intake and Output 08/19/17 08/19/17 08/19/17 06:59 14:59 22:59 Other: # Voids 3 Blood pressure 117/78 heart rate 67 afebrile maintaining oxygen saturation on room air GENERAL: This is a 77-year-old male in no apparent distress at the time of my examination. HEENT: Head is atraumatic, normocephalic. Pupils are equal, round. Sclerae anicteric. Conjunctivae are clear. Mucous membranes of the mouth are moist. Neck is supple. There is no jugular venous distention. No carotid bruit is heard. LUNGS: Clear to auscultation no wheezes, rales or rhonchi. No chest wall tenderness is noted on palpation or with deep breathing. Diminished bilaterally. HEART: Regular rate and rhythm without murmurs, rubs or gallops. S1 and S2 heard. ABDOMEN: Soft, nontender. Bowel sounds are heard. No organomegaly noted. EXTREMITIES: No evidence of peripheral edema and no calf tenderness noted. VASCULAR: Radial and dorsalis pedis pulses palpated, no evidence of clubbing. NEUROLOGIC: Patient is awake, alert and oriented x3. Results 08/18/17 10:26 08/18/17 10:26 Intake and Output 08/19/17 08/19/17 08/19/17 06:59 14:59 22:59 Other: # Voids 3 08/18/17 10:26 08/18/17 10:26 Assessment and Plan Assessment: ASSESSMENT 1. History of coronary artery disease with recent angioplasty of the diagonal branch 2. Ischemic cardiomyopathy, ejection fraction 40-45% 3. Chronic systolic heart failure 4. Paroxysmal atrial fibrillation, currently maintaining sinus mechanism 5. Bradycardia 6. Leukocytosis 7. Dyslipidemia 8. Hypertension 9. COPD 10. Chronic nicotine dependence PLAN From cardiology's perspective we recommend decreasing the Lopressor to 50 mg twice a day, decrease amiodarone to 100 mg daily and had a small dose of Aldactone 25 mg daily to his daily regimen. These prescriptions have been handwritten given to the patient. We also recommend he have a Holter monitor placed. This has been set up in the office for September 08. He should chart picker his Holter monitor that day. This has been explained to the patient and his family at the bedside in detail. Follow- up appointment with Dr. Mclaughlin after Holter monitoring complete. Lengthy discussion had with the patient and signs and symptoms of fluid overload what to look for at home. He is to obtain a scale and check his daily weight first thing in the morning. Any signs of fluid overload he's been instructed to call Dr. Mclaughlin's office. He verbalizes understanding of this plan. Smoking cessation discussed and highly recommended. The importance of medication compliance discussed. Thank you kindly for this consultation. Nurse Practitioner note has been reviewed, I agree with a documented findings and plan of care. Patient was seen and examined.
[2017-08-19] MEDS ORDERED: METOPROLOL TARTRATE 25 MG TAB PO SCH (21:00)
--- NOTE | 2017-08-20 07:31 | DS ---
DISCHARGE SUMMARY DATE OF ADMISSION: 08/17/17. DATE OF DISCHARGE: August 19, 2017. FINAL DIAGNOSES: 1. Left lower lobe pneumonia suspect gram-negative organism. 2. Coronary artery disease, prior history of stent to the LAD 2017. 3. Ischemic cardiomyopathy EF 40-45%. 4. Depression, not otherwise specified. 5. Acute chronic obstructive pulmonary disease exacerbation in a current smoker, present on admission. 6. Chronic nicotine dependence, patient active cigarette smoker. 7. Benign prostatic hypertrophy. CONSULTATIONS: Dr. Amos from Pulmonary and Dr. Wellington from Cardiology. HOSPITAL COURSE: The patient is a smoker, presented with pneumonia and COPD exacerbation. Doing much better at the time of discharge. The patient is counseled repeatedly about smoking cessation. The patient also seen by Dr. Wellington from Cardiology and medications were adjusted. The patient will have a Holter monitor done as an outpatient. EXAM: Lungs decreased breath sounds. Cardiovascular 1st and second sounds normal. DISCHARGE MEDICATIONS: 1. Zoloft 100 mg b.i.d. 2. Vitamin D3 5000 units a day. 3. Adderall 50 mg p.o. daily p.r.n. 4. Flomax 0.4 mg q.h.s. 5. Aspirin 81 mg daily. 6. Lipitor 80 mg daily. 7. Symbicort 160/4.5, 2 puffs b.i.d. 8. DuoNeb q.i.d. 9. Nicotine patch. 10.Nitrostat 0.4 sublingual q.5h p.r.n. 11.Brilinta 90 mg b.i.d. 12.Prednisone taper. 13.Cordarone 100 mg a day. 14.Zithromax 500 mg a day q24. 15.Aldactone 25 mg a day. 16.Lopressor 50 mg twice a day. FOLLOW UP: Followup with Dr. Mclaughlin 09/08/17. Follow up with Olivia 08/23/2017, follow up with his video control operator. The patient was pulse oxing 94% on room air. Care was discussed in detail with the patient. Repeatedly advised against smoking. Discussion and discharge planning more than [address] Baker. MMEVARISTOL / CHAITANYAN: [id number] /
[2017-08-20] MEDS ORDERED: SPIRONOLACTONE 25 MG TAB PO SCH (09:00)
[2017-08-20] MEDS ORDERED: AMIODARONE 100 MG TAB PO SCH (09:00)
[2017-08-24] MEDS ORDERED: AMIODARONE 200 MG TAB PO SCH (21:00)
--- NOTE | 2017-08-25 07:23 | CDI ---
Last Revision, March 2017 Documentation Clarification Form Date: 08/25/17 From: Kathi Steven Britney Chandler, [employer] Worker Hours-8:30 am & 5 pm Angie Admit Date: 08/17/2017 1:30:00 PM Patient Name: Jose Schwartz Visit Number: [id number] Discharge Date: 08/19/17 ATTENTION: The Clinical Documentation Specialists (CDI) and [facility] Coding Staff appreciate your assistance in clarifying documentation. Please respond to the clarification below the line at the bottom and electronically sign. The CDI & [facility] Coding staff will review the response and follow-up if needed. Please note: Queries are made part of the Legal Health Record. If you have any questions, please contact the author of this message via ITS. Dr. Levar Wellington Patient has chronic systolic heart failure. He experienced fluid overload on . CXR revealed possible volume overload. Received IV Lasix 40 mg. BNP 2460. Echo from showed an impaired left ventricular systolic function with an EF of 40-45%. In your professional opinion, can you please clarify the acuity of heart failure if known? Acute Chronic Acute on Chronic Unable to Determine Other, please specify Please continue to document in your progress notes and discharge summary in order to capture severity of illness and risk of mortality. Include clinical findings that support your diagnosis. MTDD
--- NOTE | 2017-09-16 09:37 | CDI ---
Last Revision, March 2017 Documentation Clarification Form Date: 09/16/17 From: Kathi Steven Britney Chandler, Interactive Media Designer Hours-8:30 am & 5 pm M-F Admit Date: 08/17/2017 1:30:00 PM Patient Name: Jose Schwartz Visit Number: [id number] Discharge Date: 08/19/17 ATTENTION: The Clinical Documentation Specialists (CDI) and [facility] Coding Staff appreciate your assistance in clarifying documentation. Please respond to the clarification below the line at the bottom and electronically sign. The CDI & [facility] Coding staff will review the response and follow-up if needed. Please note: Queries are made part of the Legal Health Record. If you have any questions, please contact the author of this message via ITS. Dr. Campbell Ingram Patient has chronic systolic heart failure. He experienced fluid overload on . CXR revealed possible volume overload. Received IV Lasix 40 mg. BNP 2460. Echo from showed an impaired left ventricular systolic function with an EF of 40-45%. In your professional opinion, can you please clarify the acuity of heart failure if known? Acute Chronic Acute on Chronic Unable to Determine Other, please specify - acute on chronic congestive heart failure from systolic dysfunction with EF of 40- 45 % from CAD MTDD
== END 2017-08-19 15:28 | disposition home health service (06) | DRG 177 ==
LOC: EC 11:29 → 4MS4W 13:30
PROVIDERS: ADMIT Hospitalist; ATTEND Hospitalist
DX: J15.6 Pneumonia due to other Gram-negative bacteria (principal); I50.23 Acute on chronic systolic (congestive) heart failure; J44.0 Chronic obstructive pulmonary disease with (acute) lower respiratory infection; J44.1 Chronic obstructive pulmonary disease with (acute) exacerbation; I48.0 Paroxysmal atrial fibrillation; I27.20 Pulmonary hypertension, unspecified; I08.3 Combined rheumatic disorders of mitral, aortic and tricuspid valves; I11.0 Hypertensive heart disease with heart failure; I25.5 Ischemic cardiomyopathy; E78.5 Hyperlipidemia, unspecified; I25.10 Atherosclerotic heart disease of native coronary artery without angina pectoris; N40.0 Benign prostatic hyperplasia without lower urinary tract symptoms; I25.2 Old myocardial infarction; K11.1 Hypertrophy of salivary gland; F32.9 Major depressive disorder, single episode, unspecified; F17.210 Nicotine dependence, cigarettes, uncomplicated; Z71.6 Tobacco abuse counseling; Z99.81 Dependence on supplemental oxygen; Z79.82 Long term (current) use of aspirin; Z79.52 Long term (current) use of systemic steroids; Z79.51 Long term (current) use of inhaled steroids; Z79.899 Other long term (current) drug therapy; Z95.5 Presence of coronary angioplasty implant and graft; Z86.73 Personal history of transient ischemic attack (TIA), and cerebral infarction without residual deficits; Z98.42 Cataract extraction status, left eye; Z98.41 Cataract extraction status, right eye; Z80.0 Family history of malignant neoplasm of digestive organs; Z80.1 Family history of malignant neoplasm of trachea, bronchus and lung
CPT/HCPCS: 36415; 71045; 71046; 80048; 80053; 82550; 82553; 83605; 83735; 83880; 84484; 85025; 85610; 85730; 87040; 87070; 87205; 87502; 93005; 94640; 96365; 96375; 99285

== ENCOUNTER 2017-10-02 16:19 | Emergency (ER) | payer MEDICARE, BC ==
[2017-10-02] MEDS ORDERED: SODIUM CHLORIDE 0.9% 1,000 ML IV STA (16:23)
[2017-10-02] MEDS ORDERED: IPRATROPIUM-ALBUTEROL 3 ML NEB INHALATION STA (16:23)
--- NOTE | 2017-10-02 16:51 | ED ---
General Adult HPI - General Chief complaint: Shortness of Breath Stated complaint: KURT Time Seen by Provider: 10/02/17 16:23 Source: EMS, RN notes reviewed, old records reviewed Mode of arrival: EMS Limitations: no limitations - History of Present Illness Initial comments: This is a 77-year-old male to the ER for evaluation. Patient was essay for evaluation of shortness of breath. History of heart disease history of COPD. Patient states the symptoms are mainly worse just today even though he has had some difficulty with breathing ever since his heart surgery. Patient states that are significantly worse when he does feel better now after getting a breathing treatment by EMS. He never had chest pain no chest pain currently no fevers no congestion. Patient does have increasing cough currently. - Related Data Home Medications Medication Instructions Recorded Confirmed Sertraline [Zoloft] 100 mg PO BID 01/27/16 10/02/17 Cholecalciferol [Vitamin D3] 5,000 unit PO DAILY 07/24/17 10/02/17 Tamsulosin [Flomax] 0.4 mg PO HS 07/24/17 10/02/17 Amiodarone [Cordarone] 100 mg PO BID 10/02/17 10/02/17 Atorvastatin [Lipitor] 80 mg PO HS 10/02/17 10/02/17 Metoprolol Tartrate [Lopressor] 25 mg PO TID@0800,1700,2100 10/02/17 10/02/17 Previous Rx's Medication Instructions Recorded Aspirin 81 mg PO DAILY #30 chew 07/27/17 Nitroglycerin Sl Tabs [Nitrostat] 0.4 mg SUBLINGUAL Q5M PRN #25 tab 07/27/17 Spironolactone [Aldactone] 25 mg PO DAILY tab 08/19/17 Albuterol Nebulized [Ventolin 2.5 mg INHALATION Q4H PRN #25 nebu 10/02/17 Nebulized] Albuterol Sulfate [Proair Hfa] 1 - 2 puff INHALATION Q4H PRN #1 10/02/17 inhaler predniSONE 50 mg PO DAILY #5 tab 10/02/17 Allergies Allergy/AdvReac Type Severity Reaction Status Date / Time No Known Allergies Allergy Verified 10/02/17 17:14 Review of Systems ROS Statement: Those systems with pertinent positive or pertinent negative responses have been documented in the HPI. ROS Other: All systems not noted in ROS Statement are negative. Past Medical History Past Medical History: Atrial Fibrillation, Coronary Artery Disease (CAD), COPD, Hyperlipidemia, Hypertension, Myocardial Infarction ([place]), Prostate Disorder Additional Past Medical History / Comment(s): Pt recently admitted 07/24/17 [facility] with NSTEMI, bronchitis, home O2 prn, BPH, enlarged salivary gland R side. 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 Past Anesthesia/Blood Transfusion Reactions: No Reported Reaction Date of Last Stent Placement:: 07/24/17 Past Psychological History: Depression Smoking Status: Current every day smoker - Past Family History Mother Family Medical History: Cancer Additional Family Medical History / Comment(s): Mother had pancreatic cancer. Father Family Medical History: Cancer Additional Family Medical History / Comment(s): Father had lung cancer. General Exam Limitations: no limitations General appearance: alert, in no apparent distress, cachectic Head exam: Present: atraumatic, normocephalic, normal inspection Eye exam: Present: normal appearance, PERRL, EOMI. Absent: scleral icterus, conjunctival injection, periorbital swelling ENT exam: Present: normal exam, mucous membranes moist Neck exam: Present: normal inspection. Absent: tenderness, meningismus, lymphadenopathy Respiratory exam: Present: normal lung sounds bilaterally, wheezes, accessory muscle use, decreased breath sounds, prolonged expiratory. Absent: respiratory distress, rales, rhonchi, stridor Cardiovascular Exam: Present: regular rate, normal rhythm, normal heart sounds. Absent: systolic murmur, diastolic murmur, rubs, gallop, clicks GI/Abdominal exam: Present: soft, normal bowel sounds. Absent: distended, tenderness, guarding, rebound, rigid Extremities exam: Present: normal inspection, full ROM, normal capillary refill. Absent: tenderness, pedal edema, joint swelling, calf tenderness Back exam: Present: normal inspection Neurological exam: Present: alert, oriented X3, CN II-XII intact Psychiatric exam: Present: normal affect, normal mood Skin exam: Present: warm, dry, intact, normal color. Absent: rash Course Vital Signs 10/02/17 10/02/17 10/02/17 16:21 16:44 16:54 Temperature 97.5 F L Pulse Rate 55 L 62 65 Respiratory 28 H Rate Blood Pressure 130/62 O2 Sat by Pulse 95 Oximetry 10/02/17 17:24 Temperature Pulse Rate 52 L Respiratory 26 H Rate Blood Pressure 132/65 O2 Sat by Pulse 97 Oximetry - Reevaluation(s) Reevaluation #1: 10/02/17 19:20 Patient has significant improvement after be breathing treatment here in the emergency room, states she would like to be discharged home Reevaluation #2: 10/02/17 19:20 A patient has walking pulse ox test which has been past EKG Findings - EKG Comments: EKG Findings:: EKG shows sinus rhythm rate of 52, [place] 160, QRS 90, QTc 451 Medical Decision Making - Medical Decision Making 77 male COPD exacerbation, symptoms much improved. Patient can be discharged home - Lab Data Result diagrams: 10/02/17 16:30 10/02/17 16:30 Lab Results 10/02/17 10/02/17 10/02/17 Range/Units 16:30 16:30 16:30 WBC 8.3 (3.8-10.6) k/uL RBC 4.96 (4.30-5.90) m/uL Hgb 14.9 (13.0-17.5) gm/dL Hct 44.9 (39.0-53.0) % MCV 90.6 (80.0-100.0) fL MCH 30.0 (25.0-35.0) pg MCHC 33.1 (31.0-37.0) g/dL RDW 15.2 (11.5-15.5) % Plt Count 170 D (150-450) k/uL Neutrophils % 77 % Lymphocytes % 12 % Monocytes % 6 % Eosinophils % 2 % Basophils % 1 % Neutrophils # 6.4 (1.3-7.7) k/uL Lymphocytes # 1.0 (1.0-4.8) k/uL Monocytes # 0.5 (0-1.0) k/uL Eosinophils # 0.2 (0-0.7) k/uL Basophils # 0.1 (0-0.2) k/uL PT (9.0-12.0) sec INR (<1.2) APTT (22.0-30.0) sec Sodium 139 (137-145) mmol/L Potassium 4.9 (3.5-5.1) mmol/L Chloride 105 (98-107) mmol/L Carbon Dioxide 23 (22-30) mmol/L Anion Gap 11 mmol/L BUN 31 H (9-20) mg/dL Creatinine 0.90 (0.66-1.25) mg/dL Est GFR (CKD-EPI)AfAm >90 (>60 ml/min/1.73 sqM) Est GFR (CKD-EPI)NonAf 82 (>60 ml/min/1.73 sqM) Glucose 106 H (74-99) mg/dL Calcium 9.4 (8.4-10.2) mg/dL Total Bilirubin 0.6 (0.2-1.3) mg/dL AST 26 (17-59) U/L ALT 38 (21-72) U/L Alkaline Phosphatase 58 (38-126) U/L Total Creatine Kinase 31 L (55-170) U/L CK-MB (CK-2) 1.1 (0.0-2.4) ng/mL CK-MB (CK-2) Rel Index 3.5 Troponin I 0.022 (0.000-0.034) ng/mL Total Protein 6.6 (6.3-8.2) g/dL Albumin 4.1 (3.5-5.0) g/dL 10/02/17 Range/Units 16:30 WBC (3.8-10.6) k/uL RBC (4.30-5.90) m/uL Hgb (13.0-17.5) gm/dL Hct (39.0-53.0) % MCV (80.0-100.0) fL MCH (25.0-35.0) pg MCHC (31.0-37.0) g/dL RDW (11.5-15.5) % Plt Count (150-450) k/uL Neutrophils % % Lymphocytes % % Monocytes % % Eosinophils % % Basophils % % Neutrophils # (1.3-7.7) k/uL Lymphocytes # (1.0-4.8) k/uL Monocytes # (0-1.0) k/uL Eosinophils # (0-0.7) k/uL Basophils # (0-0.2) k/uL PT 10.8 (9.0-12.0) sec INR 1.1 (<1.2) APTT 21.0 L (22.0-30.0) sec Sodium (137-145) mmol/L Potassium (3.5-5.1) mmol/L Chloride (98-107) mmol/L Carbon Dioxide (22-30) mmol/L Anion Gap mmol/L BUN (9-20) mg/dL Creatinine (0.66-1.25) mg/dL Est GFR (CKD-EPI)AfAm (>60 ml/min/1.73 sqM) Est GFR (CKD-EPI)NonAf (>60 ml/min/1.73 sqM) Glucose (74-99) mg/dL Calcium (8.4-10.2) mg/dL Total Bilirubin (0.2-1.3) mg/dL AST (17-59) U/L ALT (21-72) U/L Alkaline Phosphatase (38-126) U/L Total Creatine Kinase (55-170) U/L CK-MB (CK-2) (0.0-2.4) ng/mL CK-MB (CK-2) Rel Index Troponin I (0.000-0.034) ng/mL Total Protein (6.3-8.2) g/dL Albumin (3.5-5.0) g/dL - Radiology Data Radiology results: report reviewed (Chest x-rays negative for acute disease), image reviewed Disposition Clinical Impression: Acute exacerbation of chronic obstructive airways disease Disposition: HOME SELF-CARE Condition: Good Instructions: Acute Bronchitis (ED) Prescriptions: Albuterol Nebulized [Ventolin Nebulized] 2.5 mg INHALATION Q4H PRN #25 nebu PRN Reason: Shortness Of Breath Albuterol Sulfate [Proair Hfa] 1 - 2 puff INHALATION Q4H PRN #1 inhaler PRN Reason: Shortness Of Breath predniSONE 50 mg PO DAILY #5 tab Is patient prescribed a controlled substance at d/c from ED?: No Referrals: Alphonso Baker MD [Primary Care Provider] - 1-2 days
[2017-10-02 16:53] LABS: Basophils # (A) 0.1 k/uL (0-0.2); Basophils % (A) 1 %; Eosinophils # (A) 0.2 k/uL (0-0.7); Eosinophils % (A) 2 %; HCT 44.9 % (39.0-53.0); HGB 14.9 gm/dL (13.0-17.5); Lymphocytes % (A) 12 %; MCHC 33.1 g/dL (31.0-37.0); MCV 90.6 fL (80.0-100.0); Monocytes # (A) 0.5 k/uL (0-1.0); Monocytes % (A) 6 %; Neutrophils # (A) 6.4 k/uL (1.3-7.7); Neutrophils % (A) 77 %; RBC 4.96 m/uL (4.30-5.90); RDW 15.2 % (11.5-15.5); WBC 8.3 k/uL (3.8-10.6)
[2017-10-02 16:56] LABS: Platelet Count 170 k/uL (150-450)
[2017-10-02 17:01] LABS: ALT 38 U/L (21-72); AST 26 U/L (17-59); Albumin 4.1 g/dL (3.5-5.0); Alkaline Phosphatase 58 U/L (38-126); Anion Gap 11 mmol/L; Blood Urea Nitrogen 31 mg/dL (9-20); Calcium 9.4 mg/dL (8.4-10.2); Carbon Dioxide 23 mmol/L (22-30); Chloride 105 mmol/L (98-107); Glucose 106 mg/dL (74-99); Potassium 4.9 mmol/L (3.5-5.1); Sodium 139 mmol/L (137-145); Total Bilirubin 0.6 mg/dL (0.2-1.3); Total Protein 6.6 g/dL (6.3-8.2)
[2017-10-02 17:07] LABS: INR 1.1 (<1.2); Prothrombin Time 10.8 sec (9.0-12.0)
[2017-10-02 17:25] LABS: Creatine Kinase MB 1.1 ng/mL (0.0-2.4); Troponin I 0.022 ng/mL (0.000-0.034)
--- NOTE | 2017-10-02 17:52 | XR ---
EXAMINATION TYPE: XR chest 2V DATE OF EXAM: 10/02/2017 COMPARISON: Prior chest x-ray 08/18/[address] chest 09/30/2016 HISTORY: Difficulty breathing TECHNIQUE: Frontal and lateral views of the chest are obtained. FINDINGS: Cardiac mediastinal silhouette, pulmonary vascularity and armani are stable. There is no edd dent pneumonia, pneumothorax, or pleural effusion. Prominent lung volumes compatible with COPD. The a preston is dense. The aorta is dilated. IMPRESSION: Emphysema. Aortic aneurysm is chronic.
[2017-10-02] MEDS ORDERED: DEXAMETHASONE SOD PHOSPHATE 10 MG/ML 1 ML VIAL IV STA (19:18)
[2017-10-02 19:42] VITALS: BP 134/72; PULSE 55; RESP 24; TEMP 98.3
[2017-10-02] MEDS ORDERED: IPRATROPIUM-ALBUTEROL 3 ML NEB INHALATION SCH (20:00)
[2017-10-03] MEDS ORDERED: ENOXAPARIN 40 MG/0.4 ML SYRINGE SQ SCH (09:00)
== END 2017-10-02 19:42 | disposition home or self-care (01) ==
LOC: EC 16:19
DX: J44.1 Chronic obstructive pulmonary disease with (acute) exacerbation (principal); I48.91 Unspecified atrial fibrillation; I25.10 Atherosclerotic heart disease of native coronary artery without angina pectoris; E78.5 Hyperlipidemia, unspecified; I10 Essential (primary) hypertension; I25.2 Old myocardial infarction; N40.0 Benign prostatic hyperplasia without lower urinary tract symptoms; F32.9 Major depressive disorder, single episode, unspecified; F17.200 Nicotine dependence, unspecified, uncomplicated; Z79.899 Other long term (current) drug therapy
CPT/HCPCS: 36415; 71046; 80053; 82550; 82553; 84484; 85025; 85610; 85730; 93005; 94640; 96360; 99285

== ENCOUNTER → 2017-11-02 | Outpatient (CLI) | payer MEDICARE, BC ==
[2017-11-02 11:19] VITALS: BMI 19.8
== END | disposition home or self-care (01) ==
LOC: MNTWWP 10:56
PROVIDERS: ATTEND Family Medicine
DX: Z71.3 Dietary counseling and surveillance (principal)
CPT/HCPCS: 97802

== ENCOUNTER 2018-12-22 20:12 | Emergency (ER) | payer MEDICARE, BC ==
[2018-12-22] MEDS ORDERED: ALBUTEROL NEBULIZED 2.5 MG/3 ML INHALATION STA (21:13)
[2018-12-22] MEDS ORDERED: SODIUM CHLORIDE 0.9% 500 ML 500 ML IV STA (21:13)
[2018-12-22] MEDS ORDERED: IPRATROPIUM 0.5 MG/2.5 ML NEBU INHALATION STA (21:13)
[2018-12-22] MEDS ORDERED: DEXAMETHASONE SOD PHOSPHATE 10 MG/ML 1 ML VIAL IV STA (21:14)
--- NOTE | 2018-12-22 21:18 | ED ---
General Adult HPI - General Chief complaint: Shortness of Breath Stated complaint: KURT Time Seen by Provider: 12/22/18 20:57 Source: EMS Mode of arrival: EMS Limitations: no limitations - History of Present Illness Initial comments: Dictation was produced using D2S dictation software. please excuse any grammatical, word or spelling errors. Chief Complaint: 78-year-old male past medical history of atrial fibrillation, c oronary artery disease hypertension and COPD presents with dyspnea. History of Present Illness: 78-year-old male presents with dyspnea. Patient was seen at his PCPs office 2 days ago. Since then patient's symptoms have been getting worse. Patient has a history of COPD. He has oxygen at home however he is not relying on it. He only uses it when necessary dyspnea. Does have nebulizer treatments at home. Patient has any overt sick contacts. Denies any chest pain. Denies any history of blood clot. No lower external symptoms. The ROS documented in this emergency department record has been reviewed and confirmed by me. Those systems with pertinent positive or negative responses have been documented in the HPI. All other systems are other negative and/or noncontributory. PHYSICAL EXAM: General Impression: Alert and oriented x3, dyspneic HEENT: Normocephalic atraumatic, extra-ocular movements intact, pupils equal and reactive to light bilaterally, mucous membranes moist. Cardiovascular: Heart regular rate and rhythm, S1&S2 audible, no murmurs, rubs or gallops Chest: Diffuse bilateral lung wheezing Abdomen: Bowel sounds present, abdomen soft, non-tender, non-distended, no o rganomegaly Musculoskeletal: Pulses present and equal in all extremities, no peripheral edema Motor: no focal deficits noted Neurological: CN II-XII grossly intact, no focal motor or sensory deficits noted Skin: Intact with no visualized rashes Psych: Normal affect and mood ED course: 78-year-old male presents with chief complaint of dyspnea. As upon arrival shows respiratory rate of 26, rest of vital signs within acceptable limits. Glucose presentation is consistent with COPD exacerbation. Laboratory evaluation obtained. CBC, coag panel, metabolic panel is unremarkable. Prematurity peptide 1250. Chest x-rays obtained showing no acute processes. She did breathing treatment and steroids. Patient observed in emergency department for several hours with improvement of breathing symptoms. Patient felt comfortable being discharged. Did request a refill for his nebulizer albuterol. 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 He is told to use his oxygen and gave himself a breathing treatment every 4-6 hours while awake. patientunderstandable and agreeable to plan. EKG interpretation: Ventricular rate 66, normal sinus rhythm, MS interval 132, QRS 92, QTC 429.. No MS prolongation, no QTC prolongation, no ST or T-wave changes noted. EKG compared to 10/02/2017 showing no changes. Overall, this EKG is unremarkable - Related Data Home Medications Medication Instructions Recorded Confirmed Sertraline [Zoloft] 100 mg PO BID 01/27/16 12/22/18 Tamsulosin [Flomax] 0.4 mg PO HS 07/24/17 12/22/18 Atorvastatin [Lipitor] 80 mg PO HS 10/02/17 12/22/18 Metoprolol Tartrate [Lopressor] 25 mg PO BID 10/02/17 12/22/18 Budesonide/Formoterol Fumarate 2 puff INHALATION RT-BID PRN 12/22/18 12/22/18 [Symbicort 160-4.5 Mcg Inhaler] Clopidogrel Bisulfate [Plavix] 75 mg PO DAILY 12/22/18 12/22/18 Previous Rx's Medication Instructions Recorded Aspirin 81 mg PO DAILY #30 chew 07/27/17 Spironolactone [Aldactone] 25 mg PO DAILY tab 08/19/17 Albuterol Nebulized [Ventolin 2.5 mg INHALATION Q4H #20 nebu 12/22/18 Nebulized] Allergies Allergy/AdvReac Type Severity Reaction Status Date / Time No Known Allergies Allergy Verified 12/22/18 20:35 Review of Systems ROS Statement: Those systems with pertinent positive or pertinent negative responses have been documented in the HPI. ROS Other: All systems not noted in ROS Statement are negative. Past Medical History Past Medical History: Atrial Fibrillation, Coronary Artery Disease (CAD), COPD, Hyperlipidemia, Hypertension, Myocardial Infarction (NM), Prostate Disorder Additional Past Medical History / Comment(s): Pt recently admitted 07/24/17 [facility] with NSTEMI, bronchitis, home O2 prn, BPH, enlarged salivary gland R side. 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 Past Anesthesia/Blood Transfusion Reactions: No Reported Reaction Date of Last Stent Placement:: 07/24/17 Past Psychological History: Depression Smoking Status: Current every day smoker Past Alcohol Use History: Occasional Past Drug Use History: None Reported - Past Family History Mother Family Medical History: Cancer Additional Family Medical History / Comment(s): Mother had pancreatic cancer. Father Family Medical History: Cancer Additional Family Medical History / Comment(s): Father had lung cancer. General Exam Limitations: no limitations Course Vital Signs 12/22/18 12/22/18 12/22/18 20:14 21:55 22:24 Temperature 98 F Pulse Rate 68 59 L 68 Respiratory 26 H Rate Blood Pressure 121/79 O2 Sat by Pulse 96 Oximetry 12/22/18 12/22/18 22:34 23:08 Temperature Pulse Rate 68 70 Respiratory 18 Rate Blood Pressure 117/84 O2 Sat by Pulse 94 L Oximetry Medical Decision Making - Lab Data Result diagrams: 12/22/18 20:20 12/22/18 20:20 Lab Results 12/22/18 12/22/18 12/22/18 Range/Units 20:20 20:20 20:20 WBC 6.7 (3.8-10.6) k/uL RBC 4.88 (4.30-5.90) m/uL Hgb 13.9 (13.0-17.5) gm/dL Hct 43.6 (39.0-53.0) % MCV 89.3 (80.0-100.0) fL MCH 28.5 (25.0-35.0) pg MCHC 31.9 (31.0-37.0) g/dL RDW 14.1 (11.5-15.5) % Plt Count 152 (150-450) k/uL Neutrophils % 74 % Lymphocytes % 11 % Monocytes % 9 % Eosinophils % 3 % Basophils % 1 % Neutrophils # 5.0 (1.3-7.7) k/uL Lymphocytes # 0.7 L (1.0-4.8) k/uL Monocytes # 0.6 (0-1.0) k/uL Eosinophils # 0.2 (0-0.7) k/uL Basophils # 0.1 (0-0.2) k/uL PT (9.0-12.0) sec INR (<1.2) APTT (22.0-30.0) sec Sodium 139 (137-145) mmol/L Potassium 4.6 (3.5-5.1) mmol/L Chloride 102 (98-107) mmol/L Carbon Dioxide 26 (22-30) mmol/L Anion Gap 11 mmol/L BUN 35 H (9-20) mg/dL Creatinine 0.63 L (0.66-1.25) mg/dL Est GFR (CKD-EPI)AfAm >90 (>60 ml/min/1.73 sqM) Est GFR (CKD-EPI)NonAf >90 (>60 ml/min/1.73 sqM) Glucose 148 H (74-99) mg/dL Calcium 9.3 (8.4-10.2) mg/dL Total Bilirubin 0.4 (0.2-1.3) mg/dL AST 23 (17-59) U/L ALT 15 L (21-72) U/L Alkaline Phosphatase 80 (38-126) U/L NT-Pro-B Natriuret Pep 1250 pg/mL Total Protein 6.7 (6.3-8.2) g/dL Albumin 4.0 (3.5-5.0) g/dL 12/22/18 Range/Units 20:20 WBC (3.8-10.6) k/uL RBC (4.30-5.90) m/uL Hgb (13.0-17.5) gm/dL Hct (39.0-53.0) % MCV (80.0-100.0) fL MCH (25.0-35.0) pg MCHC (31.0-37.0) g/dL RDW (11.5-15.5) % Plt Count (150-450) k/uL Neutrophils % % Lymphocytes % % Monocytes % % Eosinophils % % Basophils % % Neutrophils # (1.3-7.7) k/uL Lymphocytes # (1.0-4.8) k/uL Monocytes # (0-1.0) k/uL Eosinophils # (0-0.7) k/uL Basophils # (0-0.2) k/uL PT 10.0 (9.0-12.0) sec INR 0.9 (<1.2) APTT 24.2 (22.0-30.0) sec Sodium (137-145) mmol/L Potassium (3.5-5.1) mmol/L Chloride (98-107) mmol/L Carbon Dioxide (22-30) mmol/L Anion Gap mmol/L BUN (9-20) mg/dL Creatinine (0.66-1.25) mg/dL Est GFR (CKD-EPI)AfAm (>60 ml/min/1.73 sqM) Est GFR (CKD-EPI)NonAf (>60 ml/min/1.73 sqM) Glucose (74-99) mg/dL Calcium (8.4-10.2) mg/dL Total Bilirubin (0.2-1.3) mg/dL AST (17-59) U/L ALT (21-72) U/L Alkaline Phosphatase (38-126) U/L NT-Pro-B Natriuret Pep pg/mL Total Protein (6.3-8.2) g/dL Albumin (3.5-5.0) g/dL Disposition Clinical Impression: COPD exacerbation Disposition: HOME SELF-CARE Instructions (If sedation given, give patient instructions): COPD (Chronic Obst ructive Pulmonary Disease) (ED) Prescriptions: Albuterol Nebulized [Ventolin Nebulized] 2.5 mg INHALATION Q4H #20 nebu Is patient prescribed a controlled substance at d/c from ED?: No Referrals: Alphonso Baker MD [Primary Care Provider] - 1-2 days Time of Disposition: 23:39
[2018-12-22 21:23] LABS: Basophils # (A) 0.1 k/uL (0-0.2); Basophils % (A) 1 %; Eosinophils # (A) 0.2 k/uL (0-0.7); Eosinophils % (A) 3 %; HCT 43.6 % (39.0-53.0); HGB 13.9 gm/dL (13.0-17.5); Lymphocytes # (A) 0.7 k/uL (1.0-4.8); Lymphocytes % (A) 11 %; MCH 28.5 pg (25.0-35.0); MCHC 31.9 g/dL (31.0-37.0); MCV 89.3 fL (80.0-100.0); Mean Platelet Volume 7.8; Monocytes # (A) 0.6 k/uL (0-1.0); Monocytes % (A) 9 %; Neutrophils % (A) 74 %; Platelet Count 152 k/uL (150-450); RBC 4.88 m/uL (4.30-5.90); RDW 14.1 % (11.5-15.5); WBC 6.7 k/uL (3.8-10.6)
--- NOTE | 2018-12-22 21:24 | XR ---
EXAMINATION TYPE: XR chest 2V DATE OF EXAM: 12/22/2018 COMPARISON: 10/11/2017 HISTORY: Short of breath TECHNIQUE: Frontal and lateral views of the chest are obtained. FINDINGS: There is no heart failure nor confluent pneumonic infiltrate. Thoracic aorta is atheromato us. Costophrenic angles are clear. There is slight blunting right costophrenic angle. IMPRESSION: Pleural diaphragmatic scarring at the right lung base unchanged. No heart failure. Jenna l heart. No acute lung disease.
[2018-12-22 21:32] LABS: INR 0.9 (<1.2); Partial Thromboplastin Time 24.2 sec (22.0-30.0)
[2018-12-22 21:38] LABS: ALT 15 U/L (21-72); AST 23 U/L (17-59); African American GFR (CKD) >90 (>60 ml/min/1.73 sqM); Alkaline Phosphatase 80 U/L (38-126); Anion Gap 11 mmol/L; Blood Urea Nitrogen 35 mg/dL (9-20); Calcium 9.3 mg/dL (8.4-10.2); Carbon Dioxide 26 mmol/L (22-30); Chloride 102 mmol/L (98-107); Glucose 148 mg/dL (74-99); Potassium 4.6 mmol/L (3.5-5.1); Sodium 139 mmol/L (137-145); Total Bilirubin 0.4 mg/dL (0.2-1.3); Total Protein 6.7 g/dL (6.3-8.2)
[2018-12-23 00:16] VITALS: BP 118/79; PULSE 78; RESP 20; TEMP 98.3
== END 2018-12-23 00:16 | disposition home or self-care (01) ==
LOC: EC 20:12
DX: J44.1 Chronic obstructive pulmonary disease with (acute) exacerbation (principal); I25.10 Atherosclerotic heart disease of native coronary artery without angina pectoris; E78.5 Hyperlipidemia, unspecified; I10 Essential (primary) hypertension; I25.2 Old myocardial infarction; F32.9 Major depressive disorder, single episode, unspecified; F17.200 Nicotine dependence, unspecified, uncomplicated; Z79.899 Other long term (current) drug therapy; Z79.02 Long term (current) use of antithrombotics/antiplatelets; Z95.5 Presence of coronary angioplasty implant and graft; Z99.81 Dependence on supplemental oxygen
CPT/HCPCS: 36415; 94644; 93005; 83880; 80053; 85025; 85610; 85730; 71046; 99285; 96374; 96361; J1100

== ENCOUNTER → 2019-05-22 | Outpatient (CLI) | payer BC, MEDICARE ==
[2019-05-22 15:47] LABS: African American GFR (CKD) >90 (>60 ml/min/1.73 sqM); Blood Urea Nitrogen 33 mg/dL (9-20); Non-African American GFR(CKD) >90 (>60 ml/min/1.73 sqM)
--- NOTE | 2019-05-22 16:21 | CT ---
EXAMINATION TYPE: CT brain wo/w con DATE OF EXAM: 05/22/2019 COMPARISON: None HISTORY: R29.6 recurrent falls CONTRAST: CT scan of the head is performed without and with IV Contrast, patient injected with 100 mL of Isovue 300. Unenhanced followed by contrast enhanced CT of the brain is submitted for evaluation. The ventricles are midline. The ventricles basal cisterns and sulci overlying the cervical convexities demonstrate mild enlargement not unusual for the patient's age group. There is periventricular white matter ische vivian demyelination and remote deep white matter insults. There is no evidence for intracranial hemorrh age or extra-axial collection. No mass effects are identified. Visualized bony calvarium is intact. Contrast is administered and no enhancing lesions are detected. No pathologic enhancement is ident ified. If symptoms persist consider MRI. IMPRESSION: No evidence for acute intracranial hemorrhage or enhancing lesion. Age-related atrophic a nd chronic small vessel ischemic change.
== END | disposition home or self-care (01) ==
LOC: RADCTMAIN 14:44
PROVIDERS: ATTEND Nurse Practitioner Family
DX: G31.9 Degenerative disease of nervous system, unspecified (principal); R90.89 Other abnormal findings on diagnostic imaging of central nervous system; R29.6 Repeated falls
CPT/HCPCS: 82565; 84520; 70470; 36415; Q9967